=== PATIENT | male | born 1955 | race African-American/Black ===

== ENCOUNTER 2023-02-19 12:02 | Outpatient (CLI) | payer OTHER, SELFPAY ==
--- NOTE | ~2023-02-19 | PE_ITS ---
EXAMINATION: PET skull to mid thigh DATE: 02/19/2023 14:10 INDICATION: Carcinoma. TECHNIQUE: Blood glucose level was 119 mg/dL. 11.069 mCi of 18-fluorodeoxyglucose (18-FDG) was admini stered i.v. Low dose computed tomography (CT) images were acquired from the base of the brain to the proximal thighs for attenuation correction and anatomic localization. Automated exposure control was employed. Dose-length product (DLP) was 485 mGy-cm. Positron emission tomography (PET) images were ac quired in the same distribution. COMPARISON: None FINDINGS: Head/neck: There are no pathologically enlarged lymph nodes. Chest: There is a small right pleural effusion. There is mild atelectasis bilaterally. The heart size is normal. No pericardial effusion. There is left paraesophageal lymphadenopathy with increased acti vity. Abdomen/pelvis/proximal thighs: There are multiple masses in right hepatic lobe measuring up to 8.0 c m with maximum SUV of 9.6. The spleen, gallbladder, pancreas, and right adrenal gland are normal. The re is a 3.9 cm mass in left adrenal gland with maximum SUV of 7.7. The kidneys are normal. There is a n end colostomy on the left. The prostate is moderately enlarged. There is periportal lymphadenopathy with increased activity. In the right buttock, there is a 7 mm subcutaneous mass with increased acti vity. There is no osseous malignancy. IMPRESSION: 1. Liver masses, left adrenal mass, and abdominal and chest lymphadenopathy, consistent with metastat ic disease. 2. 7 mm subcutaneous mass with increased activity in right buttock, which may be metastatic disease o r inflammation/infection. 3. Small right pleural effusion. Reviewed, dictated and finalized at location A. CTOR OF SECURITY IMPRESSION: 1. Liver masses, left adrenal mass, and abdominal and chest lymphadenopathy, co nsistent with metastatic disease. 2. 7 mm subcutaneous mass with increased activity in right buttock, which may b e metastatic disease or inflammation/infection. 3. Small right pleural effusion.
[2023-02-19 12:26] LABS: Glucose Point of Care 119 mg/dl (65-105)
== END 2023-02-19 12:03 | disposition home or self-care (01) ==
PROVIDERS: PCP Internal Medicine; Visit Provider Internal Medicine Hematology & Oncology
DX: C80.1 Malignant (primary) neoplasm, unspecified (principal); R16.0 Hepatomegaly, not elsewhere classified; R59.0 Localized enlarged lymph nodes; R22.2 Localized swelling, mass and lump, trunk; J90 Pleural effusion, not elsewhere classified
CPT/HCPCS: 78815; A9552

== ENCOUNTER 2023-03-26 05:47 | Outpatient (CLI) | payer OTHER, SELFPAY ==
--- NOTE | 2023-03-20 12:44 | PC.NURSE ---
Pre Radiology instructions Report to the outpatient [facility] on date _[id number]_ at time _0830_ for procedure Time: _1030_ YOU MAY BE MONITORED AT HOSPITAL FOR UP TO 4 HOURS AFTER YOUR PROCEDURE. A visitor will be allowed to accompany the patient into the hospital. You and your visitor will be asked to self-screen and do not enter if you have any COVID symptoms. A mask is OPTIONAL within the hospital. Patients are to have no food or drink 6 hours prior to procedure time Driving will be restricted after the procedure, you must have a person to drive you home. Labs will be drawn in preop area and once reviewed, you will be taken to radiology area for procedure. When the procedure is completed, you will be taken to outpatient where you will be monitored for several hours. You may have one visitor in this area. Other than holding anti-coagulants, patient may take other medication(s) as scheduled. Prior to your appointment date patients are instructed to hold anti-coagulants after discussing with ordering provider to stop. If unable to discontinue anti-coagulants please notify radiologist. ? No aspirin or warfarin (Coumadin) for 7 days prior to the procedure. ? No clopidogrel (Plavix), ticagrelor (Brilinta), prasugrel (Effient) or dabigatran (Pradaxa) for 5 days prior to the procedure. ? No rivaroxaban (Xarelto), apixaban (Eliquis), dipyridamole (Aggrenox or Persantine) or cilostazol (Pletal) for 2 days prior to the procedure. Medications to discontinue per physician: Date to take last dose: Please leave all valuables, including medications, at home the day of procedure. The hospital will not accept responsibility for valuables. Wear comfortable, loose fitting clothing.? Follow any additional instructions given to you from ordering provider. Telephone instructions given to _Nate__and asked if any additional questions and then verbalized understanding. Patient advised to call scheduling provider office or registration scheduling [phone] if any additional questions.
[2023-03-20 12:46] VITALS: BMI 19.2
[2023-03-26] VITALS (9 sets, daily range): BP systolic 109–137; BP diastolic 67–81; PULSE 74–93; RESP 14–16; TEMP 36.9; O2SAT 100
--- NOTE | ~2023-03-26 | US_ITS ---
EXAMINATION: US biopsy liver DATE: 03/26/2023 11:29 INDICATION: Liver mass and carcinoma of unknown primary. TECHNIQUE: The procedure including the risks and benefits was discussed with the patient. Risks discu ssed included bleeding and infection. The patient understood the risks and agreed to proceed. The sk in overlying the liver was prepped and draped in usual sterile fashion. Anesthetic was administered with 1% lidocaine subcutaneously. An 18 gauge core biopsy needle was advanced under continuous ultra sound observation to the lesion of interest. 4 core biopsy specimens were obtained. The needle was removed and the entry site was cleaned and dressed. Post procedure ultrasound demonstrated no hemorr nola. FINDINGS: Ultrasound images demonstrate an approximately 10.5 x 8.4 x 8.2 cm mass with lobular margin s and heterogeneous decreased echogenicity in the posterior right hepatic lobe. Subsequent images dem onstrate the biopsy needle advanced into the mass. Note there is also approximately 5.0 x 6.0 x 5.6 c m heterogeneous lobular mass at the marlen hepatis likely representing a conglomeration of metastatic lymph nodes. IMPRESSION: 1. Successful Ultrasound-guided biopsy of a 10.5 cm mass in the right hepatic lobe. Reviewed, dictated and finalized at location A. CTOR OF GOLF IMPRESSION: 1. Successful Ultrasound-guided biopsy of a 10.5 cm mass in the right hepatic l obe.
[2023-03-26 09:25] LABS: Mean Platelet Volume 10.1 fl (7.4-10.4); Platelet Count Result 354 k/mm3 (150-375)
[2023-03-26 09:35] LABS: INR 1.2; Prothrombin Time 15.8 Seconds (11.1-14.7)
== END 2023-03-26 15:25 | disposition home or self-care (01) ==
PROVIDERS: PCP Internal Medicine; Referring Provider Internal Medicine Hematology & Oncology; Visit Provider Radiology Diagnostic Radiology
PROC: BF45ZZZ Ultrasonography of Liver (ICD-10-PCS; CPT 47000; principal; 2023-03-26 10:30)
DX: Z01.818 Encounter for other preprocedural examination (principal); C80.1 Malignant (primary) neoplasm, unspecified
CPT/HCPCS: 36415; 47000; 76942; 85049; 85610; 88307; 88342

== ENCOUNTER 2023-04-29 10:27 | Outpatient (CLI) | payer OTHER, SELFPAY ==
[2023-04-29 10:52] LABS: Basophils Percent Auto 0.2 % (0.2-1.2); Eosinophils Percent Auto 0.3 % (0-4.4); Hemoglobin 10.9 g/dL (14.0-18.0); Immature Granulocyte Absolute 0.07 K/mm3 (0.00-0.031); Immature Granulocyte Percent A 0.5 % (0-0.5); Lymphocytes Absolute Auto 1.24 K/mm3 (0.9-3.2); Mean Corpuscular Hemoglobin 28.2 pg (26-34); Mean Corpuscular Volume 85.3 fl (80-100); Mean Platelet Volume 9.4 fl (7.4-10.4); Monocytes Absolute Auto 1.3 K/mm3 (0.1-0.6); Monocytes Percent Auto 8.5 % (2.6-8.5); Neutrophils Absolute Auto 12.8 K/mm3 (1.3-6.7); Neutrophils Percent Auto 82.5 % (45.5-73.1); Platelet Count Result 389 k/mm3 (150-375); Red Blood Count 3.87 M/mm3 (4.6-6.20); Red Cell Distribution Width 15.6 % (11.5-14.5); White Blood Count 15.5 K/mm3 (4.5-10.0)
[2023-04-29 11:13] LABS: INR 1.3
[2023-04-29 11:14] LABS: Partial Thromboplastin Time 38.3 SECONDS (22.3-36.8)
== END 2023-04-29 10:28 | disposition home or self-care (01) ==
LOC: ANHSURGERY 10:30
PROVIDERS: PCP Internal Medicine; Visit Provider Surgery
DX: C22.1 Intrahepatic bile duct carcinoma (principal); Z01.818 Encounter for other preprocedural examination
CPT/HCPCS: 36415; 85025; 85610; 85730; 86480; 87340

== ENCOUNTER 2023-04-29 12:01 | Outpatient (CLI) | payer OTHER, SELFPAY ==
[2023-04-29 15:17] LABS: Hepatitis B Surface Antigen Negative (Negative)
[2023-05-01 12:13] LABS: NIL 0.03 IU/mL; Quantiferon TB Plus, 1T NEGATIVE (NEGATIVE); TB1-NIL <0.00 IU/mL; TB2-NIL <0.00 IU/mL
== END 2023-04-29 12:02 | disposition home or self-care (01) ==
PROVIDERS: PCP Internal Medicine; Visit Provider Internal Medicine Hematology & Oncology
DX: Z11.59 Encounter for screening for other viral diseases (principal)
CPT/HCPCS: 36415; 86480; 87340

== ENCOUNTER 2023-05-01 00:33 | Day surgery (SDC) | payer OTHER, SELFPAY ==
--- NOTE | 2023-04-25 11:59 | PC.NURSE ---
Report to the Outpatient Waiting Room, entrance under the green pavilion located off [facility], at time __0745 on date __05/01/23 . Planned Procedure Time: __944 . Time changes happen often and if your time is changed the preop area will call you the afternoon before. - You and your visitor will be asked to self-screen and do not enter if you have any COVID symptoms. - A mask is optional within the hospital at this time. Patients may have clear liquids (water, carbonated beverages, clear teas, apple juice) until 3 hours prior to surgery ( 6:45 AM)with a maximum of 20 ounces. - No food from midnight until time of surgery - Infants may have breast milk until 4 hours before surgery, infant formula 6 hours prior to surgery. - Children will be allowed to drink immediately following surgery. If applicable, please bring a bottle or sippy cup to assist with drinking. Juice, water, soda, and popsicles are readily available. For infants on formula, please bring formula the day of surgery. Pacifiers are allowed. Take the following medications with a SIP of water the morning of surgery: ___INHALER IF NEEDED, MAY TAKE PAIN PILL IF NEEDED DO NOT STOP ANY OF YOUR OTHER PRESCRIPTION MEDICATIONS PRIOR TO SURGERY ?EXCEPT THE FOLLOWING Medications to discontinue per physician ALL VITAMINS 3 DAYS PRE OP.LAST DOSE 04/27/23 Please no make-up, nail kiswahili, hairspray, perfume, deodorant, or body powder the day of surgery. No jewelry (including any body piercings) or valuables the day of surgery, leave them at home. Please take a shower or bath the night before, or the morning of, surgery with an antibacterial soap. Wear comfortable, loose fitting clothing. Children are encouraged to wear pajamas. - Jewelry must be removed prior to entering the operating room. Rings and piercings that are not removed may be cut off. - The hospital will not accept responsibility for valuables. - Please leave all valuables, including medications, at home the day of surgery. If you are going home after surgery, a licensed otr tanker truck driver must drive you home. - NO public transportation without another adult if you receive anesthesia. - We recommend that an adult stay with you for 24 hours following discharge. - We also recommend that you do not drive, make important decision, drink alcoholic beverages, or take any drugs that were not prescribed by your health care provider for at least 24 hours after your discharge time. For Pediatric surgeries, we recommend two adults accompany the child home. Follow any additional instructions given to you from your surgeon. If you or anyone in your household have experienced Covid symptoms in the past week, please notify your surgeon or the nurse liaison at the phone number below for possible testing. Telephone instructions given to __PATIENT AND SISTER SANDRA and asked if any additional questions and then verbalized understanding. Patient advised to call surgeon office or pre surgery nurse liaison [phone] if any additional questions.
[2023-04-25 12:11] VITALS: BMI 19.2
--- NOTE | ~2023-05-01 | XR_ITS ---
EXAMINATION: XR chest port-a-cath/central INDICATION: Port-A-Cath insertion TECHNIQUE: Portable AP chest at 1027 hours COMPARISON: None available FINDINGS: A right subclavian Port-A-Cath ends with its tip in the midsuperior vena cava. There is a s mall to moderate size right pleural effusion. There is no pneumothorax. There are airspace opacities of the lung bases, likely atelectasis. The heart size is normal. IMPRESSION: 1. Right subclavian Port-A-Cath insertion. No pneumothorax. 2. Small to moderate size right pleural effusion. Reviewed, dictated and finalized at location B. ASSOCIATE
--- NOTE | ~2023-05-01 | XR_ITS ---
EXAMINATION: XR fl guide central line place INDICATION: Port-A-Cath insertion TECHNIQUE: A single intraoperative fluoroscopic image is submitted for review. Total fluoroscopic jose e was 27.7 seconds. COMPARISON: None available FINDINGS: Fluoroscopic image demonstrates a right subclavian Port-A-Cath and guidewire. The tip of th e catheter is below the inferior margin of fluoroscopic image. Please refer to procedure note for ful l details. IMPRESSION: 1. Please refer to procedure note for full details. Reviewed, dictated and finalized at location B. DRESSER
--- NOTE | 2023-05-01 08:32 | PM.IMHP ---
H&P: HPI History of Present Illness Date/Time: 05/01/23 08:32 Chief Complaint: Liver CA Narrative: Pt presents for placement of portacatheter for chemo tx. He was recently dx with cholangiocarcinoma. No prior hx of CA. No prior hx of central line placement. Review of Systems Review of Systems: The remainder of the review of systems to include constitutional, HEENT, cardiovascular, respiratory, GI, , integumentary, musculoskeletal, endocrine, immunologic, hematologic, psychiatric, and neurologic are all negative except for which is mentioned above in the HPI. [facility] Social History Social History Smoking packs per day: 1 Smoking cigarettes per day: 20.0 Years smoked: 50 Smoking pack-years: 50.00 Smoking status: Current every day smoker Tobacco type: cigarettes Living arrangements: alone Spiritual care concerns: No Meds Home Medications and Allergies Home Medications Medication Instructions Recorded Confirmed Type multivitamin 1 tablet PO DAILY 03/20/23 04/30/23 History acetaminophen 300 mg-codeine 15 mg 1 tablet PO PRN PRN Pain 04/25/23 04/30/23 History tablet acetaminophen 325 mg tablet 650 mg PO PRN PRN Pain 04/25/23 04/30/23 History albuterol sulfate 90 mcg/actuation 2 puff inhalation PRN PRN 04/25/23 04/30/23 History aerosol inhaler Shortness Of Breath Allergies Allergy/AdvReac Type Severity Reaction Status Date / Time No Known Allergies Allergy Verified 05/01/23 08:26 Exam Const: General: comfortable and no acute distress HENMT: Ears: TM's normal bilaterally Face/Nose/Sinus: Normal nares present Mouth: Yes moist mucous membranes Eyes: General: appearance normal, both eyes and all related structures Sclera: sclerae normal Pupils: Equal, round and reactive pupils present EOM: EOMs intact bilaterally Neck: Neck: supple and no JVD Resp: Effort & Inspection: normal respiratory effort Auscultation: clear to auscultation bilaterally Cardio: Rate: regular rate Rhythm: regular rhythm GI: GI Palp: Yes Soft to palpation, No Firmness to palpation present (GI), No Tenderness to palpation present (GI), No Guarding due to palpation present (GI) and No Hernia present Skin: General skin exam: normal color and no rashes or lesions noted Neuro: General: gait normal Speech: normal speech Motor exam (neuro): 5/5 motor strength present throughout Sensory Exam: normal sensation Extrem: General: normal to inspection Psych: Mental Status: mental status grossly normal Affect: normal affect Assessment and Plan Assessment and plan (1) Cholangiocarcinoma: Code(s): C22.1 - Intrahepatic bile duct carcinoma Status: Acute Assessment and Plan: Pt with recent dx of cholangiocarcinoma. Presents today for placement of portacatheter for chemo tx. Risks, benefits, indications, and expected outcomes were discussed in detail with the patient and/or family. They understand and I have answered all other questions. They wished to proceed with surgery as outlined above. Specific risk of iatrogenic pneumothorax and need for chest tube placement and bleeding needing blood transfusion discussed. He understands and wishes to proceed with surgery.
--- NOTE | 2023-05-01 08:37 | WPDHPUPDATE1 ---
History and Physical Update Update Date/Time: 05/01/23 08:37 History and Physical has been reviewed, including an updated exam of the patient. There are NO changes in the patient's condition. Risks, benefits, and alternatives have been discussed and questions answered. Patient agrees to proceed with procedure.
[2023-05-01] MEDS: LACTATED RINGERS 1,000 ML 30 ML IV CONT (08:58)
[2023-05-01 09:00] VITALS: BP 113/68; PULSE 84; RESP 16; TEMP 37.2; O2SAT 100
[2023-05-01 09:16] LABS: INR 1.2; Prothrombin Time 16.1 Seconds (11.1-14.7)
[2023-05-01 09:17] LABS: Partial Thromboplastin Time 32.5 SECONDS (22.3-36.8)
--- NOTE | 2023-05-01 09:33 | WPDANESEPPF ---
Anes - Initial Pre Proc Eval Procedure: Operation Date: 05/01/23 09:45 Proposed Procedures p Insertion Jonathon Cath - Efrain Gamboa MD Date/Time: 05/01/23 09:33 Surgeon: Efrain Gamboa MD Pre Op Diagnosis: cholangiocarcinoma Patient Data Age: 67 Gender: M Height: 1.75 m Weight: 56 kg Last Vital Signs Temp 99 F 05/01/23 09:00 Pulse 84 05/01/23 09:00 Resp 16 05/01/23 09:00 BP 113/68 05/01/23 09:00 Pulse Ox 100 05/01/23 09:00 O2 Del Method Room Air 05/01/23 09:00 Allergies Allergy/AdvReac Type Severity Reaction Status Date / Time No Known Allergies Allergy Verified 05/01/23 08:26 Home Medications Medication Instructions Recorded Confirmed Type multivitamin 1 tablet PO DAILY 03/20/23 04/30/23 History acetaminophen 300 mg-codeine 15 mg 1 tablet PO PRN PRN Pain 04/25/23 04/30/23 History tablet acetaminophen 325 mg tablet 650 mg PO PRN PRN Pain 04/25/23 04/30/23 History albuterol sulfate 90 mcg/actuation 2 puff inhalation PRN PRN 04/25/23 04/30/23 History aerosol inhaler Shortness Of Breath Laboratory Tests 05/01/23 08:52 PT 16.1 H Seconds (11.1-14.7) INR 1.2 APTT 32.5 SECONDS (22.3-36.8) Patient hx anesthesia problems: none Family hx anesthesia problems: none Results Review: All pre-operative results and documents have been reviewed as part of the pre-operative evaluation. [facility] Social History Social History Smoking packs per day: 1 Smoking cigarettes per day: 20.0 Years smoked: 50 Smoking pack-years: 50.00 Smoking status: Current every day smoker Tobacco type: cigarettes Living arrangements: alone Spiritual care concerns: No Anes - Eval Final PreProcedure Day of Procedure 05/01/23 09:33 Patient weight: normal Heart: regular rate and rhythm Lungs: clear to auscultation Airway: Mallampati scale class II Neurological: alert and oriented Last oral intake: >/= 8 hours ASA classification: III Emergent: no Anesthetic plan: proceed Anesthesia type and monitoring: general GIVS and standard monitoring Results Review: All pre-operative results and documents have been reviewed as part of the pre-operative evaluation. Informed Consent: The patient's anesthetic plan and its attendant risks and benefits were discussed with the patient/family/POA. Questions were solicited and answers provided to the satisfaction of the patient/family/POA.
[2023-05-01] MEDS: ceFAZolin 2 GM/D5W 50 ML 2 GM/50 ML BAG IVPB (09:38)
[2023-05-01] MEDS: LIDO 1%/EPINEPHRINE 1:100,000 20 ML VIAL 40 ML INFILTRATE (09:58)
[2023-05-01] MEDS: HEPARIN SODIUM 5,000 UNITS/ML VIAL 1000 UNITS IRRIGATION (10:00)
[2023-05-01] MEDS: HEPARIN SODIUM 5,000 UNITS/ML VIAL 5000 UNITS IV PUSH (10:01)
[2023-05-01 10:19] VITALS: BP 117/61; PULSE 89; RESP 16; O2SAT 100
[2023-05-01 10:50] VITALS: BP 111/63; PULSE 76; RESP 16; O2SAT 99
--- NOTE | 2023-05-01 11:03 | W.PM.PROC2 ---
Procedure Note - Detailed Date of Procedure 05/01/23 Pre-op Diagnosis Cholangiocarcinoma Post-op Diagnosis Same Procedure Performed Placement of right subclavian vein single-lumen port a catheter with intraoperative fluoroscopy Surgeon Efrain Gamboa MD Scalehouse Attendant AMALIA Garcia Anesthesia MAC Indications Patient is a 67-year-old gentleman who was recently diagnosed with cholangiocarcinoma. He is to undergo chemotherapy treatments and presents now for placement of marlen catheter to undergo chemotherapy treatments. Findings None significant Description of Procedure After informed consent was obtained patient brought to the operating room placed supine position and then IV sedation was administered by anesthesia. The bilateral upper anterior neck and chest was then prepped and draped usual sterile fashion 1% lidocaine mixed with 0.5% Marcaine was injected just below the medial 3rd of the right clavicle. Adverse incision was then made this area the scalpel dissection carried down through the subcutaneous tissues down to the anterior pectoralis fascia. Utilized electrocautery blunt finger dissection and created a subcutaneous port pocket below the incision level the anterior pectoralis fascia. I then placed the patient head-down Trendelenburg position and used a long 18gauge spinal needle to cannulate the right subclavian vein on 1st pass down the difficulty. There was prompt return of dark venous appearing blood. A guidewire was advanced through the needle into the subclavian vein and subsequent down into the right atrium. The needle was removed intraoperative fluoroscopy was then used to dissect the guidewire which was in the proper position. I then advanced a dilator breakaway sheath over the guidewire. The guidewire and dilator were removed leaving the sheath in place. Then a 9.6 Gabonese single-lumen catheter was advanced through the sheath into the right subclavian vein subsequent down into the right atrium of the heart. The sheath was then torn away leaving the catheter in place. Intraoperative fluoroscopy was then used to visualize the tip of the catheter again and I pulled back on the catheter until the tip was in the distal superior vena cava. The catheter was then cut to the appropriate length at the skin level and attached to the Smart Port. The Smart port was then secured the subcu port pocket utilizing 3-0 Prolene sutures on 3 sides. I then irrigated out the port pocket with sterile saline solution hemostasis was good. I then close incision was interrupted 3-0 Vicryl sutures subcutaneous tissues. The skin edges were approximated lies in a running subcuticular 4 Monocryl suture incision was then cleaned and then skin glue was applied. I then percutaneously cannulated the port with a Díaz needle. It aspirated blood easily and was flushed with heparinized saline solution. It was then flushed with a final flush of 5 as units of IV heparin. The patient tolerated the procedure well no complications. All sponges, needles, and instrument counts were correct at the end procedure. EBL was _10__cc. The patient was awakened and taken to recovery in stable and satisfactory condition. Implants 9.6 Gabonese single-lumen catheter attached to Smart Port Estimated Blood Loss 10 Drains No Packing No Pathology None sent Complications No immediate complications Condition Stable Disposition PACU [facility] Billing Surgery - Charge Forward: Surgery Billing
[2023-05-01 11:20] VITALS: BP 116/68; PULSE 81; RESP 16
== END 2023-05-01 12:00 | disposition home or self-care (01) ==
PROVIDERS: PCP Internal Medicine; Visit Provider Surgery
PROC: (CPT 36561; principal; 2023-05-01 09:45)
DX: C22.1 Intrahepatic bile duct carcinoma (principal); J90 Pleural effusion, not elsewhere classified; F17.210 Nicotine dependence, cigarettes, uncomplicated; Z79.51 Long term (current) use of inhaled steroids
CPT/HCPCS: 36561; 36415; 77001; 85610; 85730; C1788; J0690; J1100; J1644; J2250; J2405; J2704; J3010; J7030; J7120

== ENCOUNTER 2023-06-26 07:41 | Outpatient (RCR) | payer OTHER, SELFPAY ==
[2023-06-26] VITALS (9 sets, daily range): BP systolic 107–132; BP diastolic 65–78; PULSE 54–78; RESP 14–16; TEMP 36.3–37.3; O2SAT 100
[2023-06-26] MEDS: ACETAMINOPHEN 325 MG TABLET 650 MG PO (08:37)
[2023-06-26] MEDS: diphenhydrAMINE HCl CAP 25 MG CAPSULE PO (08:38)
[2023-06-26] MEDS: SODIUM CHLORIDE 0.9% IV 250 ML 30 ML IV CONT (08:38)
[2023-06-26] MEDS: FUROSEMIDE INJ 40 MG/4 ML VIAL 20 MG IV PUSH (11:26)
[2023-06-26] MEDS: HEPARIN SODIUM LOCK FLUSH 500 UNITS/5 ML VIAL (14:42)
== END 2023-09-24 23:59 | disposition home or self-care (01) ==
LOC: ANHCPCTRAN 07:41
PROVIDERS: PCP Internal Medicine; Visit Provider Internal Medicine Hematology & Oncology
DX: C22.1 Intrahepatic bile duct carcinoma (principal)
CPT/HCPCS: 36415; 36430; 86850; 86900; 86901; 86923; 96374; A9270; J1642; J1940; J7050; P9016

== ENCOUNTER 2023-09-16 10:43 | Outpatient (CLI) | payer OTHER, SELFPAY ==
--- NOTE | ~2023-09-16 | CT_ITS ---
EXAMINATION: CT chest abdomen pelvis w con DATE: 09/16/2023 11:33 INDICATION: Cholangiocarcinoma TECHNIQUE: Computed tomography (CT) of the chest, abdomen, and pelvis was performed with 100 mL Omnip aque-350 intravenous contrast. Automated exposure control and iterative reconstruction technique were employed. The dose-length product was 578.16 mGy-cm. COMPARISON: PET/CT dated 02/19/2023 FINDINGS: CHEST CT: Right subclavian central venous port catheter with distal tip at the midsuperior vena cava. Couple <4 mm nodules in the right lower lobe. No pneumonia, pulmonary edema or pleural effusion. Heart size is normal with mild biatrial enlargement. No pericardial effusion. Thoracic aorta is normal in caliber with no dissection. Interval enlargement of a 5.9 x 4.6 cm heterogeneously enhancing mass situated be tween the right side of the caudal aorta and the posterior margin of the heart which previously measu red 4.3 x 3.7 cm. Mild thoracic dextrocurvature with mild spondylosis. No suspicious lytic or blastic bone lesions. ABDOMEN/PELVIS CT: There is a poorly defined heterogeneously enhancing mass in the right hepatic lobe measuring up to 8. 3 x 6.1 cm which appears to extend beyond the margins of the posterior liver capsule consistent with reported cholangiocarcinoma. There is minimal perihepatic ascites along the adjacent posterior margin of the liver with additional minimal ascites no caudally along side the normal-appearing gallbladder . There are a few smaller peripherally enhancing centrally hypodense lesions measuring up to 1.6 cm i n the right hepatic lobe consistent with metastatic disease. Increase in size of a likely metastatic heterogeneously enhancing 4.7 x 3.1 cm left adrenal mass previously measuring 3.9 x 3.2 cm. Spleen, p ancreas, right adrenal gland and bilateral kidneys are normal. There are multiple enlarged gastrohepa tic, portacaval and periportal lymph nodes which demonstrated increased FDG uptake on prior CT consis tent with metastatic disease. Bladder is normal. Marked prostatomegaly measuring 5.3 x 4.3 cm. Postop erative changes of prior bowel surgery with anastomotic suture line in the anterior left pelvis. Ther e is also a Hunt's pouch and left lower quadrant and colostomy. No bowel obstruction. No pathologi justice enlarged pelvic lymphadenopathy. No significant interval change in a 7 mm subcutaneous mass at the right buttock equivocal for additional metastatic disease.. Small sclerotic lesion at the anterio r L1 vertebral body which was without evident increased FDG uptake on prior CT most likely representi ng a bone island. No other suspicious lytic or blastic bone lesions. IMPRESSION: 1. Large heterogeneously enhancing mass in the right hepatic lobe with posterior extracapsular extens ion consistent with reported known cholangiocarcinoma. 2. At least 3 additional small peripheral enhancing hepatic masses, previous noted FDG avid portacava l, periportal and gastrohepatic lymphadenopathy, enhancing left adrenal mass and lower thoracic middl e mediastinal mass, consistent with metastatic disease. Both the left adrenal mass in the lower thora cic mass is increased in size since the prior study consistent with progression of disease. Accurate quantitative comparison of the hepatic masses and enlarged upper abdominal lymph nodes is precluded b y difficulty in establishing the margins of the lesions on the prior noncontrast imaging. Reviewed, dictated and finalized at location B. IMPRESSION: 1. Large heterogeneously enhancing mass in the right hepatic lobe with posterio r extracapsular extension consistent with reported known cholangiocarcinoma. 2. At least 3 additional small peripheral enhancing hepatic masses, previous no alma delia FDG avid portacaval, periportal and gastrohepatic lymphade
== END 2023-09-16 10:44 | disposition home or self-care (01) ==
LOC: ANHIMG 10:49
PROVIDERS: PCP Internal Medicine; Visit Provider Internal Medicine Hematology & Oncology
DX: C22.1 Intrahepatic bile duct carcinoma (principal)
CPT/HCPCS: 71260; 74177; Q9967

== ENCOUNTER 2023-11-13 09:11 | Outpatient (CLI) | payer OTHER, SELFPAY ==
--- NOTE | ~2023-11-13 | CT_ITS ---
EXAMINATION: CT chest abdomen pelvis w con DATE: 11/13/2023 09:43 INDICATION: Cholangiocarcinoma. TECHNIQUE: Computed tomography (CT) of the chest, abdomen, and pelvis was performed with 100 mL Omnip aque 350 intravenous contrast. Automated exposure control and iterative reconstruction technique were employed. The dose-length product was 343.37 mGy-cm. COMPARISON: CT 09/16/2023 FINDINGS: CHEST CT: There is mild emphysema. There is mild atelectasis bilaterally. No pleural effusion. There is a right subclavian port with tip in superior vena cava. The heart size is normal. No pericardial effusion. T here is a 4.6 x 4.1 cm paraesophageal node that previously measured 5.5 x 4.6 cm. There is mild thora cic spondylosis. ABDOMEN/PELVIS CT: There is a mass of mixed density involving right hepatic lobe measuring 8.1 x 4.6 cm that previously measured 8.5 x 6.1 cm. There are 11 mm and 14 mm masses in right hepatic lobe. The gallbladder, splee n, pancreas, and right adrenal gland are normal. There is a 3.7 cm mass of mixed density involving le ft adrenal gland that previously measured 5.1 cm. The kidneys are normal. The prostate is moderately enlarged. There is an ostomy in left abdomen. There is a 1.9 x 1.4 cm gastrohepatic node that previou sly measured 1.7 x 1.3 cm. There is stable mild periportal and aortocaval lymphadenopathy. There is n o free intraperitoneal fluid. There is mild lumbar spondylosis. IMPRESSION: 1. Liver masses, left adrenal mass, and paraesophageal and abdominal lymphadenopathy with overall imp rovement from 09/16/2023, consistent with metastatic disease. Reviewed, dictated and finalized at location A. IMPRESSION: 1. Liver masses, left adrenal mass, and paraesophageal and abdominal lymphadeno anjum with overall improvement from 09/16/2023, consistent with metastatic disea se.
== END 2023-11-13 09:12 | disposition home or self-care (01) ==
PROVIDERS: PCP Internal Medicine; Visit Provider Internal Medicine Hematology & Oncology
DX: C22.1 Intrahepatic bile duct carcinoma (principal); R59.0 Localized enlarged lymph nodes
CPT/HCPCS: 71260; 74177; Q9967

== ENCOUNTER 2023-12-27 13:37 | Outpatient (CLI) | payer OTHER, SELFPAY ==
--- NOTE | ~2023-12-27 | CT_ITS ---
EXAMINATION: CT chest abdomen pelvis w con DATE: 12/27/2023 14:08 INDICATION: Cholangiocarcinoma. TECHNIQUE: Computed tomography (CT) of the chest, abdomen, and pelvis was performed with 100 mL Omnip aque 350 intravenous contrast. Automated exposure control and iterative reconstruction technique were employed. The dose-length product was 566.95 mGy-cm. COMPARISON: CT 11/13/2023 FINDINGS: CHEST CT: There is mild emphysema. There is mild atelectasis bilaterally. No pleural effusion. The heart size i s normal. No pericardial effusion. There is mild bilateral gynecomastia. There is a right subclavian port with tip in superior vena cava. There is a 4.8 x 4.3 cm paraesophageal node. 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 There are benign bone islands in T11 and T12. ABDOMEN/PELVIS CT: There are ill-defined masses in right hepatic lobe. The gallbladder is contracted. The spleen, pancre as, and right adrenal gland are normal. There is a 3.4 cm mass in left adrenal gland. There is gastri c hepatic lymphadenopathy. There is a 12 mm peritoneal mass posterior to the liver. The kidneys are n ormal. There is an end colostomy on the left. There is no free intraperitoneal fluid. There is a morena gn bone island in right inferior pubic ramus. There is a benign bone island in L1 vertebral body. IMPRESSION: 1. Liver masses, left adrenal mass, paraesophageal and abdominal lymphadenopathy, and peritoneal mass , stable from 11/13/2023, consistent with metastatic disease. Reviewed, dictated and finalized at location A. IMPRESSION: 1. Liver masses, left adrenal mass, paraesophageal and abdominal lymphadenopath y, and peritoneal mass, stable from 11/13/2023, consistent with metastatic disea se.
== END 2023-12-27 13:38 | disposition home or self-care (01) ==
PROVIDERS: PCP Internal Medicine; Visit Provider Internal Medicine Hematology & Oncology
DX: C22.1 Intrahepatic bile duct carcinoma (principal)
CPT/HCPCS: 71260; 74177; Q9967

== ENCOUNTER 2024-06-09 08:19 | Outpatient (RCR) | payer OTHER, SELFPAY ==
--- NOTE | 2023-04-18 16:08 | PHAR ---
Gemcitabine dose rounded down to 1600mg from 1650 mg (3%) to reduce waste due to vial size.
[2023-05-13 08:52] LABS: Basophils Percent Auto 0.2 % (0.2-1.2); Eosinophils Percent Auto 0.1 % (0-4.4); Hemoglobin 9.4 g/dL (14.0-18.0); Immature Granulocyte Percent A 0.6 % (0-0.5); Lymphocytes Absolute Auto 1.11 K/mm3 (0.9-3.2); Lymphocytes Percent Auto 6.2 % (18.3-44.2); Mean Corpuscular HGB Conc 32.4 g/dl (32-36); Mean Corpuscular Hemoglobin 28.6 pg (26-34); Mean Corpuscular Volume 88.1 fl (80-100); Mean Platelet Volume 9.9 fl (7.4-10.4); Monocytes Absolute Auto 1.4 K/mm3 (0.1-0.6); Neutrophils Absolute Auto 15.3 K/mm3 (1.3-6.7); Neutrophils Percent Auto 84.9 % (45.5-73.1); Platelet Count Result 304 k/mm3 (150-375); Red Blood Count 3.29 M/mm3 (4.6-6.20); Red Cell Distribution Width 16.3 % (11.5-14.5); White Blood Count 17.9 K/mm3 (4.5-10.0)
[2023-05-13 08:57] LABS: Blood Urea Nitrogen 6 mg/dL (8-26); Carbon Dioxide 31 mmol/L (22-30); Chloride 99 mmol/L (98-109); Estimated Glomerular Filt Rate > 60; Glucose 112 mg/dL (70-105); Ionized Calcium (POC) 1.19 mmol/L (1.11-1.31); Potassium 3.7 mmol/L (3.5-4.9); Sodium 139 mmol/L (138-146)
[2023-05-13 09:57] VITALS: BP 119/67; PULSE 80; TEMP 36.6; O2SAT 99
[2023-05-13] MEDS: PEMBROLIZUMAB 200 MG in SODIUM CHLORIDE 0.9% IV 100 ML 216 MG IVPB (10:19)
[2023-05-13 11:00] LABS: Alanine Aminotransferase 9 U/L (6-50); Albumin Level 3.3 g/dL (3.5-5.1); Alkaline Phosphatase 134 U/L (38-126); Anion Gap 6 mmol/L (8-16); Aspartate Amino Transferase 18 U/L (17-59); Bilirubin,Total 0.7 mg/dL (0.2-1.3); Blood Urea Nitrogen 8 mg/dL (9-20); Calcium 9.1 mg/dL (8.4-10.2); Carbon Dioxide 29 mmol/L (22-30); Chloride 102 mmol/L (98-107); Estimated Glomerular Filt Rate > 60; Glucose 111 mg/dL (65-110); Magnesium 1.9 mg/dL (1.6-2.3); Potassium 3.6 mmol/L (3.4-5.0); Sodium 137 mmol/L (137-145)
[2023-05-13] MEDS: [UNRECOGNIZED DRUG - OTHER] IVPB (11:03)
[2023-05-13] MEDS: POTASSIUM CHLORIDE IVPB (11:03)
[2023-05-13] MEDS: MAGNESIUM SULFATE IVPB (11:03)
[2023-05-13 11:59] LABS: Folic Acid 5.7 ng/mL (2.76->20)
[2023-05-13] MEDS: OLANZapine DISPERTAB 5 MG PO (12:29)
[2023-05-13] MEDS: PALONOSETRON HCL 0.25 MG/5 ML VIAL IV PUSH (12:29)
[2023-05-13] MEDS: FOSAPREPITANT DIMEGLUMINE 150 MG in SODIUM CHLORIDE 0.9% IV 150 ML 300 MG IVPB (12:34)
[2023-05-13] MEDS: dexAMETHasone SOD 4 MG/ML INJ 12 MG in SODIUM CHLORIDE 0.9% IV 100 ML 206 MG IVPB (12:35)
[2023-05-13] MEDS: GEMCITABINE HCL IVPB (13:20)
[2023-05-13] MEDS: SODIUM CHLORIDE 0.9% IVPB ×2 (13:20→15:12)
--- NOTE | 2023-05-13 14:50 | PC.NURSE ---
[employer] ran for 30 minutes.
[2023-05-13] MEDS: CISPLATIN IVPB (15:12)
[2023-05-13] MEDS: SODIUM CHLORIDE 0.9% IV 500 ML IVPB (15:16)
[2023-05-13 16:22] VITALS: BP 138/79
[2023-05-13] MEDS: HEPARIN SODIUM LOCK FLUSH 500 UNITS/5 ML SYRINGE IV PUSH (16:25)
[2023-05-13 16:45] LABS: Iron 23 ug/dL (49-181)
[2023-05-13 16:58] LABS: Percent Iron Saturation 12 % (20-50); TOTAL IRON BINDING CAPACITY 197 ug/dL (265-497)
[2023-05-23 08:45] LABS: Basophils Percent Auto 0.2 % (0.2-1.2); Eosinophils Percent Auto 0.2 % (0-4.4); Hemoglobin 8.9 g/dL (14.0-18.0); Immature Granulocyte Absolute 0.07 K/mm3 (0.00-0.031); Immature Granulocyte Percent A 0.6 % (0-0.5); Lymphocytes Absolute Auto 1.19 K/mm3 (0.9-3.2); Lymphocytes Percent Auto 9.5 % (18.3-44.2); Mean Corpuscular Hemoglobin 28.8 pg (26-34); Mean Corpuscular Volume 87.4 fl (80-100); Mean Platelet Volume 10.5 fl (7.4-10.4); Monocytes Percent Auto 7.7 % (2.6-8.5); Neutrophils Absolute Auto 10.3 K/mm3 (1.3-6.7); Neutrophils Percent Auto 81.8 % (45.5-73.1); Platelet Count Result 192 k/mm3 (150-375); Red Blood Count 3.09 M/mm3 (4.6-6.20); Red Cell Distribution Width 16.8 % (11.5-14.5); White Blood Count 12.5 K/mm3 (4.5-10.0)
[2023-05-23 08:49] LABS: Blood Urea Nitrogen 10 mg/dL (8-26); Carbon Dioxide 23 mmol/L (22-30); Chloride 105 mmol/L (98-109); Estimated Glomerular Filt Rate > 60; Glucose 109 mg/dL (70-105); Ionized Calcium (POC) 1.21 mmol/L (1.11-1.31); Potassium 3.1 mmol/L (3.5-4.9); Sodium 142 mmol/L (138-146)
[2023-05-23 09:23] VITALS: BP 110/54; PULSE 77; TEMP 36.6; O2SAT 100
[2023-05-23] MEDS: POTASSIUM CHLORIDE IVPB (09:47)
[2023-05-23] MEDS: MAGNESIUM SULFATE IVPB (09:47)
[2023-05-23] MEDS: [UNRECOGNIZED DRUG - OTHER] IVPB (09:47)
[2023-05-23] MEDS: PALONOSETRON HCL 0.25 MG/5 ML VIAL IV PUSH (11:58)
[2023-05-23 12:00] LABS: Alanine Aminotransferase 14 U/L (6-50); Albumin Level 3.2 g/dL (3.5-5.1); Alkaline Phosphatase 127 U/L (38-126); Anion Gap 6 mmol/L (8-16); Aspartate Amino Transferase 21 U/L (17-59); Bilirubin,Total 0.4 mg/dL (0.2-1.3); Blood Urea Nitrogen 12 mg/dL (9-20); Carbon Dioxide 24 mmol/L (22-30); Chloride 109 mmol/L (98-107); Estimated Glomerular Filt Rate > 60; Glucose 108 mg/dL (65-110); Magnesium 1.9 mg/dL (1.6-2.3); Potassium 3.1 mmol/L (3.4-5.0); Sodium 139 mmol/L (137-145)
[2023-05-23] MEDS: FOSAPREPITANT DIMEGLUMINE 150 MG in SODIUM CHLORIDE 0.9% IV 150 ML 300 MG IVPB (12:00)
[2023-05-23] MEDS: dexAMETHasone SOD 4 MG/ML INJ 12 MG in SODIUM CHLORIDE 0.9% IV 100 ML 206 MG IVPB (12:00)
[2023-05-23] MEDS: OLANZapine DISPERTAB 5 MG PO (12:00)
[2023-05-23] MEDS: GEMCITABINE HCL IVPB (12:47)
[2023-05-23] MEDS: SODIUM CHLORIDE 0.9% IVPB ×2 (12:47→13:41)
[2023-05-23] MEDS: CISPLATIN IVPB (13:41)
[2023-05-23] MEDS: SODIUM CHLORIDE 0.9% IV 500 ML IVPB (13:41)
[2023-05-23] MEDS: HEPARIN SODIUM LOCK FLUSH 500 UNITS/5 ML SYRINGE IV PUSH (14:56)
[2023-05-23 15:33] VITALS: BP 128/66
[2023-06-11 08:32] LABS: Hematocrit 26.4 % (42.0-52.0); Hemoglobin 8.9 g/dL (14.0-18.0); Mean Corpuscular HGB Conc 33.7 g/dl (32-36); Mean Platelet Volume 9.8 fl (7.4-10.4); Platelet Count Result 497 k/mm3 (150-375); Red Blood Count 3.07 M/mm3 (4.6-6.20); Red Cell Distribution Width 16.8 % (11.5-14.5); White Blood Count 22.1 K/mm3 (4.5-10.0)
[2023-06-11 08:38] LABS: Blood Urea Nitrogen 9 mg/dL (8-26); Carbon Dioxide 28 mmol/L (22-30); Chloride 98 mmol/L (98-109); Estimated Glomerular Filt Rate > 60; Glucose 113 mg/dL (70-105); Sodium 137 mmol/L (138-146)
[2023-06-11 08:39] LABS: Band Neutrophils Percent 4 % (0-6); Monocytes Absolute Manual 0.66 K/mm3 (0.1-0.90); Monocytes Percent Manual 3 % (3-9); Neutrophils Absolute Manual 20.33 K/mm3 (1.3-6.7); Neutrophils Percent Manual 88 % (46-73); Nucleated Red Blood Cells 1 %; Ovalocytes 1+; Platelet Estimate Increased (Adequate); Schistocytes None Seen; Target Cells 1+; Total Cells Counted 100
[2023-06-11 08:40] LABS: Poikilocytosis 2+
[2023-06-11 08:41] LABS: Potassium 2.6 mmol/L (3.5-4.9)
[2023-06-11 09:09] VITALS: BP 115/52; PULSE 94; TEMP 37.1; O2SAT 100
[2023-06-11] MEDS: KCL 20MEQ/0.9% SOD CHL 1,000 ML 500 ML IVPB (09:22)
[2023-06-11 09:38] LABS: Alanine Aminotransferase 11 U/L (6-50); Alkaline Phosphatase 121 U/L (38-126); Anion Gap 5 mmol/L (8-16); Aspartate Amino Transferase 26 U/L (17-59); Bilirubin,Total 0.6 mg/dL (0.2-1.3); Blood Urea Nitrogen 12 mg/dL (9-20); Calcium 8.6 mg/dL (8.4-10.2); Carbon Dioxide 28 mmol/L (22-30); Chloride 101 mmol/L (98-107); Estimated Glomerular Filt Rate > 60; Glucose 113 mg/dL (65-110); Magnesium 1.4 mg/dL (1.6-2.3); Potassium 2.7 mmol/L (3.4-5.0); Sodium 134 mmol/L (137-145)
[2023-06-11 11:39] VITALS: BP 104/56
[2023-06-11] MEDS: HEPARIN SODIUM LOCK FLUSH 500 UNITS/5 ML SYRINGE (11:42)
[2023-06-18 08:26] LABS: Hematocrit 28.8 % (42.0-52.0); Hemoglobin 9.5 g/dL (14.0-18.0); Mean Corpuscular Hemoglobin 28.5 pg (26-34); Mean Corpuscular Volume 86.5 fl (80-100); Platelet Count Result 410 k/mm3 (150-375); Red Blood Count 3.33 M/mm3 (4.6-6.20); Red Cell Distribution Width 16.9 % (11.5-14.5); White Blood Count 32.7 K/mm3 (4.5-10.0)
[2023-06-18 08:30] LABS: Blood Urea Nitrogen 13 mg/dL (8-26); Carbon Dioxide 23 mmol/L (22-30); Chloride 100 mmol/L (98-109); Estimated Glomerular Filt Rate > 60; Glucose 155 mg/dL (70-105); Ionized Calcium (POC) 1.14 mmol/L (1.11-1.31); Potassium 3.4 mmol/L (3.5-4.9); Sodium 137 mmol/L (138-146)
[2023-06-18 08:31] LABS: Lymphocytes Absolute Manual 0.65 K/mm3 (1.1-4.5); Monocytes Absolute Manual 0.65 K/mm3 (0.1-0.90); Monocytes Percent Manual 2 % (3-9); Neutrophils Percent Manual 96 % (46-73); Platelet Estimate Increased (Adequate); Total Cells Counted 100
[2023-06-18 08:32] LABS: Hypochromasia 1+; Schistocytes None Seen
[2023-06-18 09:01] VITALS: BP 103/57; PULSE 106; TEMP 36.7; O2SAT 100
[2023-06-18] MEDS: PEMBROLIZUMAB 200 MG in SODIUM CHLORIDE 0.9% IV 100 ML 216 MG IVPB (09:20)
[2023-06-18] MEDS: POTASSIUM CHLORIDE IVPB (09:57)
[2023-06-18] MEDS: [UNRECOGNIZED DRUG - OTHER] IVPB (09:57)
[2023-06-18] MEDS: MAGNESIUM SULFATE IVPB (09:57)
[2023-06-18 09:59] LABS: Alanine Aminotransferase 11 U/L (6-50); Albumin Level 2.8 g/dL (3.5-5.1); Alkaline Phosphatase 121 U/L (38-126); Anion Gap 8 mmol/L (4-12); Aspartate Amino Transferase 19 U/L (17-59); Bilirubin,Total 0.4 mg/dL (0.2-1.3); Blood Urea Nitrogen 14 mg/dL (9-20); Calcium 8.5 mg/dL (8.4-10.2); Carbon Dioxide 23 mmol/L (22-30); Chloride 103 mmol/L (98-107); Estimated Glomerular Filt Rate > 60; Glucose 156 mg/dL (65-110); Magnesium 1.4 mg/dL (1.6-2.3); Potassium 3.3 mmol/L (3.4-5.0); Sodium 134 mmol/L (137-145)
[2023-06-18] MEDS: OLANZapine DISPERTAB 5 MG PO (11:11)
[2023-06-18] MEDS: PALONOSETRON HCL 0.25 MG/5 ML VIAL IV PUSH (11:11)
[2023-06-18] MEDS: FOSAPREPITANT DIMEGLUMINE 150 MG in SODIUM CHLORIDE 0.9% IV 150 ML 300 MG IVPB (11:14)
[2023-06-18] MEDS: dexAMETHasone SOD 4 MG/ML INJ 12 MG in SODIUM CHLORIDE 0.9% IV 100 ML 206 MG IVPB (11:15)
[2023-06-18] MEDS: GEMCITABINE HCL IVPB (11:54)
[2023-06-18] MEDS: SODIUM CHLORIDE 0.9% IVPB ×2 (11:54→12:42)
[2023-06-18] MEDS: CISPLATIN IVPB (12:42)
[2023-06-18] MEDS: SODIUM CHLORIDE 0.9% IV 500 ML IVPB (12:48)
[2023-06-18 13:54] VITALS: BP 97/52
[2023-06-18] MEDS: HEPARIN SODIUM LOCK FLUSH 500 UNITS/5 ML SYRINGE IV PUSH (14:00)
[2023-06-25 09:08] LABS: Basophils Percent Auto 0.2 % (0.2-1.2); Eosinophils Absolute Auto 0.1 K/mm3 (0-0.3); Eosinophils Percent Auto 0.3 % (0-4.4); Hemoglobin 8.9 g/dL (14.0-18.0); Immature Granulocyte Absolute 0.17 K/mm3 (0.00-0.031); Lymphocytes Absolute Auto 1.57 K/mm3 (0.9-3.2); Lymphocytes Percent Auto 9.6 % (18.3-44.2); Mean Corpuscular Hemoglobin 28.8 pg (26-34); Mean Corpuscular Volume 87.4 fl (80-100); Mean Platelet Volume 9.3 fl (7.4-10.4); Monocytes Absolute Auto 0.9 K/mm3 (0.1-0.6); Monocytes Percent Auto 5.6 % (2.6-8.5); Neutrophils Absolute Auto 13.6 K/mm3 (1.3-6.7); Neutrophils Percent Auto 83.3 % (45.5-73.1); Platelet Count Result 161 k/mm3 (150-375); Red Blood Count 3.09 M/mm3 (4.6-6.20); Red Cell Distribution Width 16.3 % (11.5-14.5); White Blood Count 16.4 K/mm3 (4.5-10.0)
[2023-06-25 09:16] LABS: Blood Urea Nitrogen 23 mg/dL (8-26); Carbon Dioxide 20 mmol/L (22-30); Chloride 103 mmol/L (98-109); Estimated Glomerular Filt Rate > 60; Glucose 118 mg/dL (70-105); Ionized Calcium (POC) 1.23 mmol/L (1.11-1.31); Potassium 4.2 mmol/L (3.5-4.9); Sodium 137 mmol/L (138-146)
[2023-06-25 09:52] VITALS: BP 110/74; PULSE 87; TEMP 36.4; O2SAT 100
[2023-06-25] MEDS: POTASSIUM CHLORIDE IVPB (10:09)
[2023-06-25] MEDS: MAGNESIUM SULFATE IVPB (10:09)
[2023-06-25] MEDS: [UNRECOGNIZED DRUG - OTHER] IVPB (10:09)
[2023-06-25] MEDS: FOSAPREPITANT DIMEGLUMINE 150 MG in SODIUM CHLORIDE 0.9% IV 150 ML 300 MG IVPB (11:28)
[2023-06-25] MEDS: PALONOSETRON HCL 0.25 MG/5 ML VIAL IV PUSH (11:28)
[2023-06-25] MEDS: OLANZapine DISPERTAB 5 MG PO (11:28)
[2023-06-25] MEDS: dexAMETHasone SOD 4 MG/ML INJ 12 MG in SODIUM CHLORIDE 0.9% IV 100 ML 206 MG IVPB (11:29)
[2023-06-25] MEDS: GEMCITABINE HCL IVPB (12:16)
[2023-06-25] MEDS: SODIUM CHLORIDE 0.9% IVPB ×2 (12:16→12:58)
[2023-06-25 12:42] LABS: Alanine Aminotransferase 20 U/L (6-50); Albumin Level 3.3 g/dL (3.5-5.1); Alkaline Phosphatase 163 U/L (38-126); Anion Gap 7 mmol/L (4-12); Aspartate Amino Transferase 26 U/L (17-59); Bilirubin,Total 0.4 mg/dL (0.2-1.3); Blood Urea Nitrogen 24 mg/dL (9-20); Carbon Dioxide 20 mmol/L (22-30); Chloride 106 mmol/L (98-107); Estimated Glomerular Filt Rate > 60; Glucose 117 mg/dL (65-110); Magnesium 1.4 mg/dL (1.6-2.3); Potassium 4.2 mmol/L (3.4-5.0); Sodium 133 mmol/L (137-145)
[2023-06-25] MEDS: SODIUM CHLORIDE 0.9% IV 500 ML IVPB (12:57)
[2023-06-25] MEDS: CISPLATIN IVPB (12:58)
--- NOTE | 2023-06-25 13:05 | PHAR ---
MAGNESIUM LOW AT 1.4. GIVE 2 GRAMS IV PER VERBAL ORDER FROM DR VILLAFANA.
[2023-06-25] MEDS: MAGNESIUM SULF 2 GM/WATER 50ML 2 GM/50 ML BAG IVPB (14:12)
[2023-06-25] MEDS: HEPARIN SODIUM LOCK FLUSH 500 UNITS/5 ML SYRINGE IV PUSH (14:48)
[2023-06-25 14:49] VITALS: BP 105/56
[2023-07-31 10:14] LABS: Hematocrit 31.9 % (42.0-52.0); Hemoglobin 10.3 g/dL (14.0-18.0); Mean Corpuscular HGB Conc 32.3 g/dl (32-36); Mean Corpuscular Hemoglobin 30.7 pg (26-34); Mean Corpuscular Volume 94.9 fl (80-100); Mean Platelet Volume 9.8 fl (7.4-10.4); Platelet Count Result 316 k/mm3 (150-375); Red Blood Count 3.36 M/mm3 (4.6-6.20); Red Cell Distribution Width 18.6 % (11.5-14.5)
[2023-07-31 10:18] LABS: Blood Urea Nitrogen 11 mg/dL (8-26); Carbon Dioxide 25 mmol/L (22-30); Chloride 102 mmol/L (98-109); Estimated Glomerular Filt Rate > 60; Glucose 98 mg/dL (70-105); Ionized Calcium (POC) 1.15 mmol/L (1.11-1.31); Potassium 3.9 mmol/L (3.5-4.9); Sodium 139 mmol/L (138-146)
[2023-07-31 10:22] LABS: Band Neutrophils Percent 1 % (0-6); Giant Platelets Present; Lymphocytes Absolute Manual 1.52 K/mm3 (1.1-4.5); Monocytes Absolute Manual 1.14 K/mm3 (0.1-0.90); Monocytes Percent Manual 6 % (3-9); Neutrophils Absolute Manual 16.34 K/mm3 (1.3-6.7); Neutrophils Percent Manual 85 % (46-73); Platelet Estimate Adequate (Adequate); Schistocytes None Seen; Total Cells Counted 100
[2023-07-31 10:23] LABS: Anisocytosis 1+; Microcytosis 1+ (NORMAL)
[2023-07-31 16:42] LABS: Alanine Aminotransferase 17 U/L (6-50); Albumin Level 3.3 g/dL (3.5-5.1); Alkaline Phosphatase 156 U/L (38-126); Anion Gap 9 mmol/L (4-12); Aspartate Amino Transferase 32 U/L (17-59); Bilirubin,Total 0.4 mg/dL (0.2-1.3); Blood Urea Nitrogen 13 mg/dL (9-20); Calcium 8.8 mg/dL (8.4-10.2); Carbon Dioxide 22 mmol/L (22-30); Chloride 106 mmol/L (98-107); Estimated Glomerular Filt Rate > 60; Glucose 89 mg/dL (65-110); Sodium 137 mmol/L (137-145)
[2023-08-06 09:00] LABS: Hematocrit 29.3 % (42.0-52.0); Hemoglobin 9.4 g/dL (14.0-18.0); Mean Corpuscular HGB Conc 32.1 g/dl (32-36); Mean Corpuscular Volume 93.6 fl (80-100); Mean Platelet Volume 9.7 fl (7.4-10.4); Platelet Count Result 384 k/mm3 (150-375); Red Blood Count 3.13 M/mm3 (4.6-6.20); Red Cell Distribution Width 18.9 % (11.5-14.5); White Blood Count 23.9 K/mm3 (4.5-10.0)
[2023-08-06 09:05] LABS: Blood Urea Nitrogen 13 mg/dL (8-26); Carbon Dioxide 22 mmol/L (22-30); Chloride 105 mmol/L (98-109); Estimated Glomerular Filt Rate > 60; Glucose 87 mg/dL (70-105); Ionized Calcium (POC) 1.21 mmol/L (1.11-1.31); Potassium 3.7 mmol/L (3.5-4.9); Sodium 139 mmol/L (138-146)
[2023-08-06 09:07] LABS: Anisocytosis 1+; Band Neutrophils Percent 3 % (0-6); Hypochromasia 1+; Lymphocytes Absolute Manual 1.91 K/mm3 (1.1-4.5); Metamyelocytes Percent 1 %; Microcytosis 1+ (NORMAL); Monocytes Absolute Manual 1.43 K/mm3 (0.1-0.90); Monocytes Percent Manual 6 % (3-9); Neutrophils Absolute Manual 20.31 K/mm3 (1.3-6.7); Neutrophils Percent Manual 82 % (46-73); Nucleated Red Blood Cells 1 %; Platelet Estimate Adequate (Adequate); Schistocytes None Seen; Total Cells Counted 100
[2023-08-06 09:17] VITALS: BP 97/62; PULSE 78; RESP 16; TEMP 37.4; O2SAT 100
[2023-08-06 09:57] LABS: Alanine Aminotransferase 14 U/L (6-50); Albumin Level 3.1 g/dL (3.5-5.1); Alkaline Phosphatase 142 U/L (38-126); Anion Gap 6 mmol/L (4-12); Aspartate Amino Transferase 31 U/L (17-59); Bilirubin,Total 0.4 mg/dL (0.2-1.3); Blood Urea Nitrogen 15 mg/dL (9-20); Calcium 8.7 mg/dL (8.4-10.2); Carbon Dioxide 21 mmol/L (22-30); Chloride 108 mmol/L (98-107); Estimated Glomerular Filt Rate > 60; Glucose 87 mg/dL (65-110); Magnesium 1.2 mg/dL (1.6-2.3); Potassium 3.7 mmol/L (3.4-5.0); Sodium 135 mmol/L (137-145)
[2023-08-06] MEDS: PEMBROLIZUMAB 200 MG in SODIUM CHLORIDE 0.9% IV 100 ML 216 MG IVPB (10:12)
[2023-08-06] MEDS: MAGNESIUM SULFATE IVPB (10:51)
[2023-08-06] MEDS: POTASSIUM CHLORIDE IVPB (10:51)
[2023-08-06] MEDS: [UNRECOGNIZED DRUG - OTHER] IVPB (10:51)
[2023-08-06] MEDS: MAGNESIUM SULF 2 GM/WATER 50ML 2 GM/50 ML BAG IVPB (10:55)
[2023-08-06 12:14] LABS: Iron 25 ug/dL (49-181)
[2023-08-06] MEDS: PALONOSETRON HCL 0.25 MG/5 ML VIAL IV PUSH (12:25)
[2023-08-06 12:26] LABS: Percent Iron Saturation 11 % (20-50); TOTAL IRON BINDING CAPACITY 227 ug/dL (265-497)
[2023-08-06] MEDS: OLANZapine DISPERTAB 5 MG PO (12:29)
[2023-08-06] MEDS: dexAMETHasone SOD 4 MG/ML INJ 12 MG in SODIUM CHLORIDE 0.9% IV 100 ML 206 MG IVPB (12:31)
[2023-08-06] MEDS: FOSAPREPITANT DIMEGLUMINE 150 MG in SODIUM CHLORIDE 0.9% IV 150 ML 300 MG IVPB (12:32)
[2023-08-06] MEDS: SODIUM CHLORIDE 0.9% IVPB ×2 (13:09→13:56)
[2023-08-06] MEDS: GEMCITABINE HCL IVPB (13:09)
--- NOTE | 2023-08-06 13:12 | PHAR ---
MAGNESIUM LOW AT 1.2. GIVE 2 GRAMS IV PER VERBAL ORDER FROM DR VILLAFANA.
[2023-08-06] MEDS: SODIUM CHLORIDE 0.9% IV 500 ML IVPB (13:55)
[2023-08-06] MEDS: CISPLATIN IVPB (13:56)
[2023-08-06] MEDS: HEPARIN SODIUM LOCK FLUSH 500 UNITS/5 ML SYRINGE IV PUSH (15:06)
[2023-08-06 15:10] VITALS: BP 111/51
[2023-08-13 08:29] LABS: Hematocrit 26.5 % (42.0-52.0); Hemoglobin 8.8 g/dL (14.0-18.0); Mean Corpuscular HGB Conc 33.2 g/dl (32-36); Mean Corpuscular Hemoglobin 30.9 pg (26-34); Mean Platelet Volume 9.2 fl (7.4-10.4); Platelet Count Result 207 k/mm3 (150-375); Red Blood Count 2.85 M/mm3 (4.6-6.20); Red Cell Distribution Width 18.2 % (11.5-14.5); White Blood Count 13.9 K/mm3 (4.5-10.0)
[2023-08-13 08:34] LABS: Blood Urea Nitrogen 12 mg/dL (8-26); Carbon Dioxide 19 mmol/L (22-30); Chloride 106 mmol/L (98-109); Estimated Glomerular Filt Rate > 60; Glucose 95 mg/dL (70-105); Ionized Calcium (POC) 1.13 mmol/L (1.11-1.31); Potassium 3.6 mmol/L (3.5-4.9); Sodium 140 mmol/L (138-146)
[2023-08-13 08:36] LABS: Anisocytosis 1+; Eosinophils Absolute Manual 0.13 K/mm3 (0.02-0.50); Eosinophils Percent Manual 1 % (0-4); Hypochromasia 1+; Microcytosis 1+ (NORMAL); Monocytes Absolute Manual 0.27 K/mm3 (0.1-0.90); Monocytes Percent Manual 2 % (3-9); Neutrophils Percent Manual 84 % (46-73); Platelet Estimate Adequate (Adequate); Schistocytes None Seen; Total Cells Counted 100
[2023-08-13 08:44] VITALS: BP 101/58; PULSE 87; TEMP 37.1; O2SAT 100
[2023-08-13] MEDS: [UNRECOGNIZED DRUG - OTHER] IVPB (09:00)
[2023-08-13] MEDS: POTASSIUM CHLORIDE IVPB (09:00)
[2023-08-13] MEDS: MAGNESIUM SULFATE IVPB ×2 (09:00→13:10)
[2023-08-13 09:50] LABS: Alanine Aminotransferase 25 U/L (6-50); Albumin Level 3.3 g/dL (3.5-5.1); Alkaline Phosphatase 138 U/L (38-126); Anion Gap 9 mmol/L (4-12); Aspartate Amino Transferase 28 U/L (17-59); Bilirubin,Total 0.4 mg/dL (0.2-1.3); Blood Urea Nitrogen 14 mg/dL (9-20); Calcium 8.1 mg/dL (8.4-10.2); Carbon Dioxide 18 mmol/L (22-30); Chloride 111 mmol/L (98-107); Estimated Glomerular Filt Rate > 60; Glucose 95 mg/dL (65-110); Magnesium 1.1 mg/dL (1.6-2.3); Potassium 3.5 mmol/L (3.4-5.0); Sodium 138 mmol/L (137-145)
--- NOTE | 2023-08-13 10:11 | PHAR ---
MAGNESIUM LOW AT 1.1. GIVE 4 GRAMS IV PER VERBAL ORDER FROM DR VILLAFANA.
[2023-08-13] MEDS: OLANZapine DISPERTAB 5 MG PO (10:22)
[2023-08-13] MEDS: PALONOSETRON HCL 0.25 MG/5 ML VIAL IV PUSH (10:22)
[2023-08-13] MEDS: dexAMETHasone SOD 4 MG/ML INJ 12 MG in SODIUM CHLORIDE 0.9% IV 100 ML 206 MG IVPB (10:24)
[2023-08-13] MEDS: FOSAPREPITANT DIMEGLUMINE 150 MG in SODIUM CHLORIDE 0.9% IV 150 ML 300 MG IVPB (10:24)
[2023-08-13] MEDS: SODIUM CHLORIDE 0.9% IVPB ×2 (11:07→11:56)
[2023-08-13] MEDS: GEMCITABINE HCL IVPB (11:07)
[2023-08-13] MEDS: SODIUM CHLORIDE 0.9% IV 500 ML IVPB (11:55)
[2023-08-13] MEDS: CISPLATIN IVPB (11:56)
[2023-08-13] MEDS: STERILE FOR IVPB (13:10)
[2023-08-13] MEDS: WATER IVPB (13:10)
[2023-08-13 14:10] VITALS: BP 127/61
[2023-08-13] MEDS: HEPARIN SODIUM LOCK FLUSH 500 UNITS/5 ML SYRINGE IV PUSH (14:14)
--- NOTE | 2023-08-13 15:59 | PHAR ---
PER DR VILLAFANA WE ARE CHANGING THE PATIENTS PREHYDRATION TO 4 GRAMS OF MAGNESIUM SULFATE FROM 1 GRAM SINCE THE PATIENT IS CONSISTENTLY LOW.
[2023-08-27 09:01] LABS: Basophils Percent Auto 0.2 % (0.2-1.2); Eosinophils Absolute Auto 0.1 K/mm3 (0-0.3); Eosinophils Percent Auto 0.7 % (0-4.4); Hematocrit 27.2 % (42.0-52.0); Lymphocytes Percent Auto 14.1 % (18.3-44.2); Mean Corpuscular HGB Conc 33.1 g/dl (32-36); Mean Corpuscular Hemoglobin 32.1 pg (26-34); Mean Corpuscular Volume 97.1 fl (80-100); Mean Platelet Volume 10.5 fl (7.4-10.4); Monocytes Absolute Auto 1.4 K/mm3 (0.1-0.6); Monocytes Percent Auto 14.1 % (2.6-8.5); Neutrophils Absolute Auto 6.9 K/mm3 (1.3-6.7); Neutrophils Percent Auto 69.9 % (45.5-73.1); Platelet Count Result 328 k/mm3 (150-375); Red Cell Distribution Width 20.8 % (11.5-14.5); White Blood Count 9.9 K/mm3 (4.5-10.0)
[2023-08-27 09:05] LABS: Blood Urea Nitrogen 7 mg/dL (8-26); Carbon Dioxide 20 mmol/L (22-30); Chloride 108 mmol/L (98-109); Estimated Glomerular Filt Rate > 60; Glucose 90 mg/dL (70-105); Ionized Calcium (POC) 1.19 mmol/L (1.11-1.31); Potassium 2.9 mmol/L (3.5-4.9); Sodium 143 mmol/L (138-146)
[2023-08-27 09:18] VITALS: BP 112/69; PULSE 77; TEMP 36.6; O2SAT 100
[2023-08-27] MEDS: PEMBROLIZUMAB 200 MG in SODIUM CHLORIDE 0.9% IV 100 ML 216 MG IVPB (09:40)
[2023-08-27] MEDS: [UNRECOGNIZED DRUG - OTHER] IVPB (10:17)
[2023-08-27] MEDS: MAGNESIUM SULFATE IVPB (10:17)
[2023-08-27] MEDS: POTASSIUM CHLORIDE IVPB (10:17)
[2023-08-27 10:25] LABS: Alanine Aminotransferase 24 U/L (6-50); Alkaline Phosphatase 125 U/L (38-126); Anion Gap 6 mmol/L (4-12); Aspartate Amino Transferase 32 U/L (17-59); Bilirubin,Total 0.4 mg/dL (0.2-1.3); Blood Urea Nitrogen 8 mg/dL (9-20); Calcium 8.3 mg/dL (8.4-10.2); Carbon Dioxide 20 mmol/L (22-30); Chloride 114 mmol/L (98-107); Estimated Glomerular Filt Rate > 60; Glucose 88 mg/dL (65-110); Potassium 2.8 mmol/L (3.4-5.0); Sodium 140 mmol/L (137-145)
[2023-08-27] MEDS: PALONOSETRON HCL 0.25 MG/5 ML VIAL IV PUSH (11:43)
[2023-08-27] MEDS: OLANZapine DISPERTAB 5 MG PO (11:43)
[2023-08-27] MEDS: dexAMETHasone SOD 4 MG/ML INJ 12 MG in SODIUM CHLORIDE 0.9% IV 100 ML 206 MG IVPB (11:47)
[2023-08-27] MEDS: FOSAPREPITANT DIMEGLUMINE 150 MG in SODIUM CHLORIDE 0.9% IV 150 ML 300 MG IVPB (11:47)
[2023-08-27] MEDS: SODIUM CHLORIDE 0.9% IVPB ×2 (12:39→13:28)
[2023-08-27] MEDS: GEMCITABINE HCL IVPB (12:39)
[2023-08-27] MEDS: CISPLATIN IVPB (13:28)
[2023-08-27] MEDS: SODIUM CHLORIDE 0.9% IV 500 ML IVPB (13:28)
[2023-08-27] MEDS: HEPARIN SODIUM LOCK FLUSH 500 UNITS/5 ML SYRINGE IV PUSH (14:42)
[2023-08-27 14:44] VITALS: BP 113/64
[2023-09-03 08:26] LABS: Hemoglobin 9.1 g/dL (14.0-18.0); Mean Corpuscular HGB Conc 32.5 g/dl (32-36); Mean Corpuscular Hemoglobin 32.3 pg (26-34); Mean Corpuscular Volume 99.3 fl (80-100); Mean Platelet Volume 8.9 fl (7.4-10.4); Platelet Count Result 177 k/mm3 (150-375); Red Blood Count 2.82 M/mm3 (4.6-6.20); Red Cell Distribution Width 19.5 % (11.5-14.5); White Blood Count 8.7 K/mm3 (4.5-10.0)
[2023-09-03 08:31] LABS: Blood Urea Nitrogen 7 mg/dL (8-26); Carbon Dioxide 20 mmol/L (22-30); Chloride 110 mmol/L (98-109); Estimated Glomerular Filt Rate > 60; Glucose 89 mg/dL (70-105); Ionized Calcium (POC) 1.24 mmol/L (1.11-1.31); Potassium 3.9 mmol/L (3.5-4.9); Sodium 143 mmol/L (138-146)
[2023-09-03 08:33] LABS: Band Neutrophils Percent 3 % (0-6); Lymphocytes Absolute Manual 1.91 K/mm3 (1.1-4.5); Metamyelocytes Percent 2 %; Monocytes Absolute Manual 0.52 K/mm3 (0.1-0.90); Monocytes Percent Manual 6 % (3-9); Neutrophils Absolute Manual 6.09 K/mm3 (1.3-6.7); Neutrophils Percent Manual 67 % (46-73); Nucleated Red Blood Cells 1 %; Total Cells Counted 100
[2023-09-03 08:35] LABS: Hypochromasia 2+; Platelet Estimate Adequate (Adequate); Schistocytes None Seen
[2023-09-03 09:10] VITALS: BP 117/60; PULSE 76; TEMP 37.1; O2SAT 100
[2023-09-03] MEDS: POTASSIUM CHLORIDE IVPB (09:30)
[2023-09-03] MEDS: MAGNESIUM SULFATE IVPB (09:30)
[2023-09-03] MEDS: [UNRECOGNIZED DRUG - OTHER] IVPB (09:30)
[2023-09-03] MEDS: PALONOSETRON HCL 0.25 MG/5 ML VIAL IV PUSH (10:40)
[2023-09-03] MEDS: FOSAPREPITANT DIMEGLUMINE 150 MG in SODIUM CHLORIDE 0.9% IV 150 ML 300 MG IVPB (10:42)
[2023-09-03] MEDS: dexAMETHasone SOD 4 MG/ML INJ 12 MG in SODIUM CHLORIDE 0.9% IV 100 ML 206 MG IVPB (10:43)
[2023-09-03] MEDS: OLANZapine DISPERTAB 5 MG PO (10:44)
[2023-09-03 11:01] LABS: Alanine Aminotransferase 36 U/L (6-50); Albumin Level 3.6 g/dL (3.5-5.1); Alkaline Phosphatase 151 U/L (38-126); Aspartate Amino Transferase 37 U/L (17-59); Bilirubin,Total 0.5 mg/dL (0.2-1.3); Blood Urea Nitrogen 9 mg/dL (9-20); Calcium 8.9 mg/dL (8.4-10.2); Carbon Dioxide 19 mmol/L (22-30); Estimated Glomerular Filt Rate > 60; Glucose 87 mg/dL (65-110); Magnesium 1.2 mg/dL (1.6-2.3)
[2023-09-03 11:09] LABS: Anion Gap 8 mmol/L (4-12); Chloride 114 mmol/L (98-107); Potassium 3.9 mmol/L (3.4-5.0); Sodium 141 mmol/L (137-145)
[2023-09-03] MEDS: SODIUM CHLORIDE 0.9% IVPB ×2 (11:25→12:17)
[2023-09-03] MEDS: GEMCITABINE HCL IVPB (11:25)
[2023-09-03] MEDS: CISPLATIN IVPB (12:17)
[2023-09-03] MEDS: SODIUM CHLORIDE 0.9% IV 500 ML IVPB (12:17)
[2023-09-03 13:32] VITALS: BP 135/83
[2023-09-03] MEDS: HEPARIN SODIUM LOCK FLUSH 500 UNITS/5 ML SYRINGE IV PUSH (13:36)
[2023-09-17 08:31] LABS: Basophils Percent Auto 0.3 % (0.2-1.2); Eosinophils Absolute Auto 0.1 K/mm3 (0-0.3); Eosinophils Percent Auto 0.7 % (0-4.4); Hematocrit 29.1 % (42.0-52.0); Hemoglobin 9.5 g/dL (14.0-18.0); Immature Granulocyte Absolute 0.06 K/mm3 (0.00-0.031); Immature Granulocyte Percent A 0.8 % (0-0.5); Lymphocytes Absolute Auto 1.28 K/mm3 (0.9-3.2); Lymphocytes Percent Auto 16.9 % (18.3-44.2); Mean Corpuscular HGB Conc 32.6 g/dl (32-36); Mean Corpuscular Hemoglobin 32.9 pg (26-34); Mean Corpuscular Volume 100.7 fl (80-100); Mean Platelet Volume 9.7 fl (7.4-10.4); Monocytes Absolute Auto 1.2 K/mm3 (0.1-0.6); Monocytes Percent Auto 15.8 % (2.6-8.5); Neutrophils Percent Auto 65.5 % (45.5-73.1); Platelet Count Result 239 k/mm3 (150-375); Red Blood Count 2.89 M/mm3 (4.6-6.20); Red Cell Distribution Width 18.3 % (11.5-14.5); White Blood Count 7.6 K/mm3 (4.5-10.0)
[2023-09-17 08:36] LABS: Blood Urea Nitrogen 10 mg/dL (8-26); Carbon Dioxide 24 mmol/L (22-30); Chloride 106 mmol/L (98-109); Estimated Glomerular Filt Rate > 60; Glucose 136 mg/dL (70-105); Ionized Calcium (POC) 1.22 mmol/L (1.11-1.31); Sodium 144 mmol/L (138-146)
[2023-09-17 09:21] LABS: Alanine Aminotransferase 46 U/L (6-50); Albumin Level 3.4 g/dL (3.5-5.1); Alkaline Phosphatase 149 U/L (38-126); Anion Gap 9 mmol/L (4-12); Aspartate Amino Transferase 45 U/L (17-59); Bilirubin,Total 0.4 mg/dL (0.2-1.3); Blood Urea Nitrogen 12 mg/dL (9-20); Calcium 8.5 mg/dL (8.4-10.2); Carbon Dioxide 22 mmol/L (22-30); Chloride 111 mmol/L (98-107); Estimated Glomerular Filt Rate > 60; Glucose 135 mg/dL (65-110); Magnesium 1.3 mg/dL (1.6-2.3); Sodium 142 mmol/L (137-145)
[2023-09-17 09:30] VITALS: BP 122/65; PULSE 82; TEMP 36.3; O2SAT 100
[2023-09-17] MEDS: PEMBROLIZUMAB 200 MG in SODIUM CHLORIDE 0.9% IV 100 ML 216 MG IVPB (09:42)
[2023-09-17] MEDS: POTASSIUM CHLORIDE IVPB (10:23)
[2023-09-17] MEDS: [UNRECOGNIZED DRUG - OTHER] IVPB (10:23)
[2023-09-17] MEDS: MAGNESIUM SULFATE IVPB (10:23)
[2023-09-17] MEDS: FOSAPREPITANT DIMEGLUMINE 150 MG in SODIUM CHLORIDE 0.9% IV 150 ML 300 MG IVPB (11:57)
[2023-09-17] MEDS: dexAMETHasone SOD 4 MG/ML INJ 12 MG in SODIUM CHLORIDE 0.9% IV 100 ML 206 MG IVPB (11:59)
[2023-09-17] MEDS: PALONOSETRON HCL 0.25 MG/5 ML VIAL IV PUSH (11:59)
[2023-09-17] MEDS: GEMCITABINE HCL IVPB (12:49)
[2023-09-17] MEDS: SODIUM CHLORIDE 0.9% IVPB ×2 (12:49→13:39)
[2023-09-17] MEDS: CISPLATIN IVPB (13:39)
[2023-09-17] MEDS: SODIUM CHLORIDE 0.9% IV 500 ML IVPB (14:40)
[2023-09-17 14:53] VITALS: BP 113/58
[2023-09-24 09:20] LABS: Hematocrit 29.2 % (42.0-52.0); Hemoglobin 9.7 g/dL (14.0-18.0); Mean Corpuscular HGB Conc 33.2 g/dl (32-36); Mean Corpuscular Hemoglobin 33.3 pg (26-34); Mean Corpuscular Volume 100.3 fl (80-100); Mean Platelet Volume 9.3 fl (7.4-10.4); Platelet Count Result 145 k/mm3 (150-375); Red Blood Count 2.91 M/mm3 (4.6-6.20); Red Cell Distribution Width 16.7 % (11.5-14.5); White Blood Count 7.2 K/mm3 (4.5-10.0)
[2023-09-24 09:25] LABS: Blood Urea Nitrogen 13 mg/dL (8-26); Carbon Dioxide 21 mmol/L (22-30); Chloride 106 mmol/L (98-109); Estimated Glomerular Filt Rate > 60; Glucose 105 mg/dL (70-105); Ionized Calcium (POC) 1.18 mmol/L (1.11-1.31); Potassium 3.8 mmol/L (3.5-4.9); Sodium 140 mmol/L (138-146)
[2023-09-24 09:28] LABS: Anisocytosis 1+; Band Neutrophils Percent 1 % (0-6); Lymphocytes Absolute Manual 1.58 K/mm3 (1.1-4.5); Metamyelocytes Percent 1 %; Microcytosis 1+ (NORMAL); Monocytes Percent Manual 7 % (3-9); Neutrophils Absolute Manual 5.04 K/mm3 (1.3-6.7); Neutrophils Percent Manual 69 % (46-73); Ovalocytes 1+; Platelet Estimate Slightly Decreased (Adequate); Poikilocytosis 1+; Schistocytes None Seen; Total Cells Counted 100
[2023-09-24 09:42] VITALS: BP 116/61; PULSE 72; TEMP 36.6; O2SAT 100
[2023-09-24] MEDS: POTASSIUM CHLORIDE IVPB (10:10)
[2023-09-24] MEDS: MAGNESIUM SULFATE IVPB (10:10)
[2023-09-24] MEDS: [UNRECOGNIZED DRUG - OTHER] IVPB (10:10)
[2023-09-24 10:12] LABS: Alanine Aminotransferase 52 U/L (6-50); Albumin Level 3.4 g/dL (3.5-5.1); Alkaline Phosphatase 167 U/L (38-126); Anion Gap 8 mmol/L (4-12); Aspartate Amino Transferase 44 U/L (17-59); Bilirubin,Total 0.5 mg/dL (0.2-1.3); Blood Urea Nitrogen 14 mg/dL (9-20); Calcium 8.6 mg/dL (8.4-10.2); Carbon Dioxide 19 mmol/L (22-30); Chloride 111 mmol/L (98-107); Estimated Glomerular Filt Rate > 60; Glucose 102 mg/dL (65-110); Magnesium 1.1 mg/dL (1.6-2.3); Potassium 3.8 mmol/L (3.4-5.0); Sodium 138 mmol/L (137-145)
--- NOTE | 2023-09-24 11:02 | PHAR ---
MAGNESIUM LOW AT 1.1. GIVE 2 GRAMS IV PER VERBAL ORDER FROM NILTON BAI
[2023-09-24] MEDS: PALONOSETRON HCL 0.25 MG/5 ML VIAL IV PUSH (11:22)
[2023-09-24] MEDS: dexAMETHasone SOD 4 MG/ML INJ 12 MG in SODIUM CHLORIDE 0.9% IV 100 ML 206 MG IVPB (11:22)
[2023-09-24] MEDS: FOSAPREPITANT DIMEGLUMINE 150 MG in SODIUM CHLORIDE 0.9% IV 150 ML 300 MG IVPB (11:22)
[2023-09-24] MEDS: SODIUM CHLORIDE 0.9% IVPB ×2 (12:16→12:52)
[2023-09-24] MEDS: GEMCITABINE HCL IVPB (12:16)
[2023-09-24] MEDS: SODIUM CHLORIDE 0.9% IV 500 ML IVPB (12:52)
[2023-09-24] MEDS: CISPLATIN IVPB (12:52)
[2023-09-24] MEDS: MAGNESIUM SULF 2 GM/WATER 50ML 2 GM/50 ML BAG IVPB (13:58)
[2023-09-24 14:33] VITALS: BP 134/62
[2023-09-24] MEDS: HEPARIN SODIUM LOCK FLUSH 500 UNITS/5 ML SYRINGE IV PUSH (14:36)
[2023-10-08 09:16] LABS: Basophils Percent Auto 0.3 % (0.2-1.2); Eosinophils Percent Auto 0.4 % (0-4.4); Hematocrit 32.2 % (42.0-52.0); Hemoglobin 10.6 g/dL (14.0-18.0); Immature Granulocyte Absolute 0.08 K/mm3 (0.00-0.031); Immature Granulocyte Percent A 1.1 % (0-0.5); Lymphocytes Absolute Auto 1.29 K/mm3 (0.9-3.2); Lymphocytes Percent Auto 18.5 % (18.3-44.2); Mean Corpuscular HGB Conc 32.9 g/dl (32-36); Mean Corpuscular Hemoglobin 33.9 pg (26-34); Mean Corpuscular Volume 102.9 fl (80-100); Mean Platelet Volume 10.8 fl (7.4-10.4); Monocytes Absolute Auto 1.3 K/mm3 (0.1-0.6); Monocytes Percent Auto 18.2 % (2.6-8.5); Neutrophils Absolute Auto 4.3 K/mm3 (1.3-6.7); Neutrophils Percent Auto 61.5 % (45.5-73.1); Platelet Count Result 233 k/mm3 (150-375); Red Blood Count 3.13 M/mm3 (4.6-6.20)
[2023-10-08 09:20] LABS: Blood Urea Nitrogen 19 mg/dL (8-26); Carbon Dioxide 19 mmol/L (22-30); Chloride 108 mmol/L (98-109); Estimated Glomerular Filt Rate > 60; Glucose 115 mg/dL (70-105); Ionized Calcium (POC) 1.24 mmol/L (1.11-1.31); Potassium 4.2 mmol/L (3.5-4.9); Sodium 138 mmol/L (138-146)
[2023-10-08 09:27] VITALS: BP 115/64; PULSE 86; TEMP 36.6; O2SAT 100
[2023-10-08] MEDS: PEMBROLIZUMAB 200 MG in SODIUM CHLORIDE 0.9% IV 100 ML 216 MG IVPB (10:06)
[2023-10-08 10:31] LABS: Alanine Aminotransferase 56 U/L (6-50); Albumin Level 3.6 g/dL (3.5-5.1); Alkaline Phosphatase 168 U/L (38-126); Anion Gap 12 mmol/L (4-12); Aspartate Amino Transferase 55 U/L (17-59); Bilirubin,Total 0.6 mg/dL (0.2-1.3); Blood Urea Nitrogen 19 mg/dL (9-20); Calcium 8.8 mg/dL (8.4-10.2); Carbon Dioxide 18 mmol/L (22-30); Chloride 107 mmol/L (98-107); Estimated Glomerular Filt Rate > 60; Glucose 114 mg/dL (65-110); Magnesium 1.1 mg/dL (1.6-2.3); Potassium 4.2 mmol/L (3.4-5.0); Sodium 137 mmol/L (137-145)
[2023-10-08] MEDS: POTASSIUM CHLORIDE IVPB (11:02)
[2023-10-08] MEDS: MAGNESIUM SULFATE IVPB (11:02)
[2023-10-08] MEDS: [UNRECOGNIZED DRUG - OTHER] IVPB (11:02)
[2023-10-08] MEDS: PALONOSETRON HCL 0.25 MG/5 ML VIAL IV PUSH (12:22)
[2023-10-08] MEDS: dexAMETHasone SOD 4 MG/ML INJ 12 MG in SODIUM CHLORIDE 0.9% IV 100 ML 206 MG IVPB (12:24)
[2023-10-08] MEDS: FOSAPREPITANT DIMEGLUMINE 150 MG in SODIUM CHLORIDE 0.9% IV 150 ML 300 MG IVPB (12:24)
[2023-10-08] MEDS: GEMCITABINE HCL IVPB (13:05)
[2023-10-08] MEDS: SODIUM CHLORIDE 0.9% IVPB ×2 (13:05→13:43)
[2023-10-08] MEDS: SODIUM CHLORIDE 0.9% IV 500 ML IVPB (13:43)
[2023-10-08] MEDS: CISPLATIN IVPB (13:43)
[2023-10-08 14:45] VITALS: BP 124/61
[2023-10-08] MEDS: HEPARIN SODIUM LOCK FLUSH 500 UNITS/5 ML SYRINGE IV PUSH (14:51)
[2023-10-15 09:24] LABS: Basophils Percent Auto 0.2 % (0.2-1.2); Hemoglobin 9.8 g/dL (14.0-18.0); Immature Granulocyte Percent A 3.8 % (0-0.5); Lymphocytes Absolute Auto 1.39 K/mm3 (0.9-3.2); Lymphocytes Percent Auto 26.7 % (18.3-44.2); Mean Corpuscular HGB Conc 33.8 g/dl (32-36); Mean Corpuscular Hemoglobin 33.8 pg (26-34); Mean Platelet Volume 9.3 fl (7.4-10.4); Monocytes Absolute Auto 0.5 K/mm3 (0.1-0.6); Monocytes Percent Auto 9.2 % (2.6-8.5); Neutrophils Absolute Auto 3.1 K/mm3 (1.3-6.7); Neutrophils Percent Auto 60.1 % (45.5-73.1); Platelet Count Result 205 k/mm3 (150-375); Red Cell Distribution Width 16.2 % (11.5-14.5); White Blood Count 5.2 K/mm3 (4.5-10.0)
[2023-10-15 09:29] LABS: Blood Urea Nitrogen 21 mg/dL (8-26); Carbon Dioxide 20 mmol/L (22-30); Chloride 106 mmol/L (98-109); Estimated Glomerular Filt Rate > 60; Glucose 119 mg/dL (70-105); Ionized Calcium (POC) 1.23 mmol/L (1.11-1.31); Potassium 3.2 mmol/L (3.5-4.9); Sodium 140 mmol/L (138-146)
[2023-10-15 10:26] VITALS: BP 119/74; PULSE 74; TEMP 36.2; O2SAT 100
[2023-10-15] MEDS: POTASSIUM CHLORIDE IVPB (10:48)
[2023-10-15] MEDS: [UNRECOGNIZED DRUG - OTHER] IVPB (10:48)
[2023-10-15] MEDS: MAGNESIUM SULFATE IVPB (10:48)
[2023-10-15 11:50] LABS: Alanine Aminotransferase 76 U/L (6-50); Albumin Level 3.6 g/dL (3.5-5.1); Alkaline Phosphatase 153 U/L (38-126); Anion Gap 11 mmol/L (4-12); Aspartate Amino Transferase 63 U/L (17-59); Bilirubin,Total 0.4 mg/dL (0.2-1.3); Blood Urea Nitrogen 21 mg/dL (9-20); Calcium 8.4 mg/dL (8.4-10.2); Carbon Dioxide 19 mmol/L (22-30); Chloride 107 mmol/L (98-107); Estimated Glomerular Filt Rate > 60; Glucose 117 mg/dL (65-110); Magnesium 1.1 mg/dL (1.6-2.3); Potassium 3.2 mmol/L (3.4-5.0); Sodium 137 mmol/L (137-145)
[2023-10-15] MEDS: dexAMETHasone SOD 4 MG/ML INJ 12 MG in SODIUM CHLORIDE 0.9% IV 100 ML 206 MG IVPB (12:02)
[2023-10-15] MEDS: FOSAPREPITANT DIMEGLUMINE 150 MG in SODIUM CHLORIDE 0.9% IV 150 ML 300 MG IVPB (12:02)
[2023-10-15] MEDS: PALONOSETRON HCL 0.25 MG/5 ML VIAL IV PUSH (12:04)
[2023-10-15] MEDS: GEMCITABINE HCL IVPB (12:56)
[2023-10-15] MEDS: SODIUM CHLORIDE 0.9% IVPB ×2 (12:56→13:36)
[2023-10-15] MEDS: SODIUM CHLORIDE 0.9% IV 500 ML IVPB (13:36)
[2023-10-15] MEDS: CISPLATIN IVPB (13:36)
[2023-10-15 14:39] VITALS: BP 121/62
[2023-10-15] MEDS: HEPARIN SODIUM LOCK FLUSH 500 UNITS/5 ML SYRINGE IV PUSH (14:46)
[2023-10-29 08:29] LABS: Basophils Percent Auto 0.3 % (0.2-1.2); Eosinophils Percent Auto 0.3 % (0-4.4); Hematocrit 31.6 % (42.0-52.0); Hemoglobin 10.4 g/dL (14.0-18.0); Immature Granulocyte Absolute 0.06 K/mm3 (0.00-0.031); Lymphocytes Absolute Auto 1.34 K/mm3 (0.9-3.2); Lymphocytes Percent Auto 22.7 % (18.3-44.2); Mean Corpuscular HGB Conc 32.9 g/dl (32-36); Mean Corpuscular Volume 103.3 fl (80-100); Mean Platelet Volume 10.8 fl (7.4-10.4); Monocytes Absolute Auto 1.1 K/mm3 (0.1-0.6); Monocytes Percent Auto 18.1 % (2.6-8.5); Neutrophils Absolute Auto 3.4 K/mm3 (1.3-6.7); Neutrophils Percent Auto 57.6 % (45.5-73.1); Platelet Count Result 210 k/mm3 (150-375); Red Blood Count 3.06 M/mm3 (4.6-6.20); Red Cell Distribution Width 17.4 % (11.5-14.5); White Blood Count 5.9 K/mm3 (4.5-10.0)
[2023-10-29 08:34] LABS: Blood Urea Nitrogen 19 mg/dL (8-26); Carbon Dioxide 18 mmol/L (22-30); Chloride 109 mmol/L (98-109); Estimated Glomerular Filt Rate > 60; Glucose 114 mg/dL (70-105); Ionized Calcium (POC) 1.24 mmol/L (1.11-1.31); Potassium 4.6 mmol/L (3.5-4.9); Sodium 140 mmol/L (138-146)
[2023-10-29 08:36] VITALS: BP 107/70; PULSE 70; TEMP 36.6; O2SAT 100
[2023-10-29] MEDS: PEMBROLIZUMAB 200 MG in SODIUM CHLORIDE 0.9% IV 100 ML 216 MG IVPB (09:04)
[2023-10-29] MEDS: POTASSIUM CHLORIDE IVPB (09:54)
[2023-10-29] MEDS: MAGNESIUM SULFATE IVPB (09:54)
[2023-10-29] MEDS: [UNRECOGNIZED DRUG - OTHER] IVPB (09:54)
[2023-10-29 10:13] LABS: Alanine Aminotransferase 73 U/L (6-50); Albumin Level 3.5 g/dL (3.5-5.1); Alkaline Phosphatase 160 U/L (38-126); Anion Gap 12 mmol/L (4-12); Aspartate Amino Transferase 73 U/L (17-59); Bilirubin,Total 0.4 mg/dL (0.2-1.3); Blood Urea Nitrogen 20 mg/dL (9-20); Carbon Dioxide 17 mmol/L (22-30); Chloride 109 mmol/L (98-107); Estimated Glomerular Filt Rate > 60; Glucose 113 mg/dL (65-110); Magnesium 1.3 mg/dL (1.6-2.3); Potassium 4.6 mmol/L (3.4-5.0); Sodium 138 mmol/L (137-145)
[2023-10-29] MEDS: dexAMETHasone SOD 4 MG/ML INJ 12 MG in SODIUM CHLORIDE 0.9% IV 100 ML 206 MG IVPB (11:06)
[2023-10-29] MEDS: PALONOSETRON HCL 0.25 MG/5 ML VIAL IV PUSH (11:06)
[2023-10-29] MEDS: FOSAPREPITANT DIMEGLUMINE 150 MG in SODIUM CHLORIDE 0.9% IV 150 ML 300 MG IVPB (11:07)
[2023-10-29] MEDS: GEMCITABINE HCL IVPB (12:02)
[2023-10-29] MEDS: SODIUM CHLORIDE 0.9% IVPB ×2 (12:02→12:43)
[2023-10-29] MEDS: SODIUM CHLORIDE 0.9% IV 500 ML IVPB (12:42)
[2023-10-29] MEDS: CISPLATIN IVPB (12:43)
[2023-10-29 13:53] VITALS: BP 113/64
[2023-11-05 08:44] LABS: Hematocrit 31.5 % (42.0-52.0); Hemoglobin 10.7 g/dL (14.0-18.0); Mean Corpuscular Hemoglobin 34.5 pg (26-34); Mean Corpuscular Volume 101.6 fl (80-100); Mean Platelet Volume 9.9 fl (7.4-10.4); Platelet Count Result 211 k/mm3 (150-375); Red Cell Distribution Width 15.3 % (11.5-14.5); White Blood Count 6.7 K/mm3 (4.5-10.0)
[2023-11-05 08:55] LABS: Anisocytosis 1+; Band Neutrophils Percent 5 % (0-6); Lymphocytes Absolute Manual 1.87 K/mm3 (1.1-4.5); Metamyelocytes Percent 1 %; Microcytosis 1+ (NORMAL); Monocytes Absolute Manual 0.53 K/mm3 (0.1-0.90); Monocytes Percent Manual 8 % (3-9); Neutrophils Absolute Manual 4.22 K/mm3 (1.3-6.7); Neutrophils Percent Manual 58 % (46-73); Ovalocytes 1+; Platelet Estimate Adequate (Adequate); Poikilocytosis 1+; Schistocytes None Seen; Total Cells Counted 100
[2023-11-05 08:55] LABS: Blood Urea Nitrogen 24 mg/dL (8-26); Carbon Dioxide 18 mmol/L (22-30); Chloride 108 mmol/L (98-109); Estimated Glomerular Filt Rate > 60; Glucose 120 mg/dL (70-105); Ionized Calcium (POC) 1.27 mmol/L (1.11-1.31); Sodium 137 mmol/L (138-146)
[2023-11-05 09:43] VITALS: BP 107/74; PULSE 70; TEMP 36.6; O2SAT 100
[2023-11-05] MEDS: MAGNESIUM SULFATE IVPB (10:18)
[2023-11-05] MEDS: SODIUM CHLORIDE 0.9% IVPB ×3 (10:18→13:04)
[2023-11-05 10:28] LABS: Alanine Aminotransferase 112 U/L (6-50); Albumin Level 3.6 g/dL (3.5-5.1); Alkaline Phosphatase 200 U/L (38-126); Anion Gap 11 mmol/L (4-12); Aspartate Amino Transferase 85 U/L (17-59); Bilirubin,Total 0.3 mg/dL (0.2-1.3); Blood Urea Nitrogen 25 mg/dL (9-20); Calcium 9.2 mg/dL (8.4-10.2); Carbon Dioxide 17 mmol/L (22-30); Chloride 106 mmol/L (98-107); Estimated Glomerular Filt Rate > 60; Glucose 118 mg/dL (65-110); Magnesium 1.3 mg/dL (1.6-2.3); Sodium 134 mmol/L (137-145)
[2023-11-05] MEDS: PALONOSETRON HCL 0.25 MG/5 ML VIAL IV PUSH (11:35)
[2023-11-05] MEDS: dexAMETHasone SOD 4 MG/ML INJ 12 MG in SODIUM CHLORIDE 0.9% IV 100 ML 206 MG IVPB (11:38)
[2023-11-05] MEDS: FOSAPREPITANT DIMEGLUMINE 150 MG in SODIUM CHLORIDE 0.9% IV 150 ML 300 MG IVPB (11:39)
[2023-11-05] MEDS: GEMCITABINE HCL IVPB (12:17)
[2023-11-05] MEDS: SODIUM CHLORIDE 0.9% IV 500 ML IVPB (13:01)
[2023-11-05] MEDS: CISPLATIN IVPB (13:04)
[2023-11-05 14:24] VITALS: BP 119/53
[2023-11-05] MEDS: HEPARIN SODIUM LOCK FLUSH 500 UNITS/5 ML SYRINGE IV PUSH (14:31)
[2023-11-26 09:30] LABS: Basophils Percent Auto 0.4 % (0.2-1.2); Eosinophils Percent Auto 0.3 % (0-4.4); Hematocrit 31.6 % (42.0-52.0); Hemoglobin 10.2 g/dL (14.0-18.0); Immature Granulocyte Absolute 0.18 K/mm3 (0.00-0.031); Immature Granulocyte Percent A 2.3 % (0-0.5); Lymphocytes Absolute Auto 1.52 K/mm3 (0.9-3.2); Lymphocytes Percent Auto 19.4 % (18.3-44.2); Mean Corpuscular HGB Conc 32.3 g/dl (32-36); Mean Corpuscular Hemoglobin 34.3 pg (26-34); Mean Corpuscular Volume 106.4 fl (80-100); Mean Platelet Volume 10.8 fl (7.4-10.4); Monocytes Absolute Auto 1.5 K/mm3 (0.1-0.6); Monocytes Percent Auto 19.5 % (2.6-8.5); Neutrophils Absolute Auto 4.6 K/mm3 (1.3-6.7); Neutrophils Percent Auto 58.1 % (45.5-73.1); Platelet Count Result 194 k/mm3 (150-375); Red Blood Count 2.97 M/mm3 (4.6-6.20); Red Cell Distribution Width 16.9 % (11.5-14.5); White Blood Count 7.8 K/mm3 (4.5-10.0)
[2023-11-26 09:37] LABS: Blood Urea Nitrogen 14 mg/dL (8-26); Carbon Dioxide 19 mmol/L (22-30); Chloride 110 mmol/L (98-109); Estimated Glomerular Filt Rate > 60; Glucose 95 mg/dL (70-105); Ionized Calcium (POC) 1.19 mmol/L (1.11-1.31); Potassium 3.2 mmol/L (3.5-4.9); Sodium 144 mmol/L (138-146)
[2023-11-26 11:15] LABS: Alanine Aminotransferase 87 U/L (6-50); Albumin Level 3.1 g/dL (3.5-5.1); Alkaline Phosphatase 147 U/L (38-126); Anion Gap 9 mmol/L (4-12); Aspartate Amino Transferase 114 U/L (17-59); Bilirubin,Total 0.5 mg/dL (0.2-1.3); Blood Urea Nitrogen 15 mg/dL (9-20); Calcium 8.3 mg/dL (8.4-10.2); Carbon Dioxide 21 mmol/L (22-30); Chloride 111 mmol/L (98-107); Estimated Glomerular Filt Rate > 60; Glucose 94 mg/dL (65-110); Potassium 3.2 mmol/L (3.4-5.0); Sodium 141 mmol/L (137-145)
[2023-12-02 09:43] LABS: Basophils Percent Auto 0.3 % (0.2-1.2); Eosinophils Percent Auto 0.2 % (0-4.4); Hematocrit 32.5 % (42.0-52.0); Hemoglobin 10.5 g/dL (14.0-18.0); Immature Granulocyte Absolute 0.19 K/mm3 (0.00-0.031); Immature Granulocyte Percent A 1.7 % (0-0.5); Lymphocytes Absolute Auto 1.46 K/mm3 (0.9-3.2); Lymphocytes Percent Auto 13.4 % (18.3-44.2); Mean Corpuscular HGB Conc 32.3 g/dl (32-36); Mean Corpuscular Hemoglobin 34.4 pg (26-34); Mean Corpuscular Volume 106.6 fl (80-100); Mean Platelet Volume 10.4 fl (7.4-10.4); Monocytes Absolute Auto 1.3 K/mm3 (0.1-0.6); Neutrophils Absolute Auto 7.9 K/mm3 (1.3-6.7); Neutrophils Percent Auto 72.4 % (45.5-73.1); Platelet Count Result 151 k/mm3 (150-375); Red Blood Count 3.05 M/mm3 (4.6-6.20); Red Cell Distribution Width 15.9 % (11.5-14.5); White Blood Count 10.9 K/mm3 (4.5-10.0)
[2023-12-02 09:54] VITALS: BP 107/56; PULSE 83; TEMP 36.3; O2SAT 100
[2023-12-02 10:21] LABS: Alanine Aminotransferase 113 U/L (6-50); Alkaline Phosphatase 187 U/L (38-126); Anion Gap 9 mmol/L (4-12); Aspartate Amino Transferase 152 U/L (17-59); Bilirubin,Total 0.5 mg/dL (0.2-1.3); Blood Urea Nitrogen 19 mg/dL (9-20); Calcium 8.9 mg/dL (8.4-10.2); Carbon Dioxide 22 mmol/L (22-30); Chloride 107 mmol/L (98-107); Estimated Glomerular Filt Rate > 60; Glucose 107 mg/dL (65-110); Magnesium 1.4 mg/dL (1.6-2.3); Sodium 138 mmol/L (137-145)
[2023-12-02] MEDS: PEMBROLIZUMAB 200 MG in SODIUM CHLORIDE 0.9% IV 100 ML 216 MG IVPB (10:45)
--- NOTE | 2023-12-02 10:54 | PHAR ---
MAGNESIUM [address] GRAMS CALL[address] IN BY DR VILLAFANA DUE TO MG OF 1.4.
[2023-12-02] MEDS: POTASSIUM CHLORIDE IVPB (11:24)
[2023-12-02] MEDS: MAGNESIUM SULFATE IVPB (11:24)
[2023-12-02] MEDS: [UNRECOGNIZED DRUG - OTHER] IVPB (11:24)
[2023-12-02] MEDS: FOSAPREPITANT DIMEGLUMINE 150 MG in SODIUM CHLORIDE 0.9% IV 150 ML 300 MG IVPB (12:37)
[2023-12-02] MEDS: dexAMETHasone SOD 4 MG/ML INJ 12 MG in SODIUM CHLORIDE 0.9% IV 100 ML 206 MG IVPB (12:37)
[2023-12-02] MEDS: PALONOSETRON HCL 0.25 MG/5 ML VIAL IV PUSH (12:37)
[2023-12-02] MEDS: SODIUM CHLORIDE 0.9% IVPB ×2 (13:34→14:19)
[2023-12-02] MEDS: GEMCITABINE HCL IVPB (13:34)
[2023-12-02] MEDS: SODIUM CHLORIDE 0.9% IV 500 ML IVPB (14:18)
[2023-12-02] MEDS: CISPLATIN IVPB (14:19)
[2023-12-02] MEDS: WATER IVPB (15:29)
[2023-12-02] MEDS: MAGNESIUM SULF IVPB (15:29)
[2023-12-02 15:54] VITALS: BP 117/63
[2023-12-02] MEDS: HEPARIN SODIUM LOCK FLUSH 500 UNITS/5 ML SYRINGE IV PUSH (15:58)
[2023-12-09 09:37] LABS: Hematocrit 30.8 % (42.0-52.0); Hemoglobin 10.2 g/dL (14.0-18.0); Mean Corpuscular HGB Conc 33.1 g/dl (32-36); Mean Corpuscular Hemoglobin 34.5 pg (26-34); Mean Corpuscular Volume 104.1 fl (80-100); Mean Platelet Volume 11.1 fl (7.4-10.4); Platelet Count Result 96 k/mm3 (150-375); Red Blood Count 2.96 M/mm3 (4.6-6.20); Red Cell Distribution Width 14.4 % (11.5-14.5); White Blood Count 8.4 K/mm3 (4.5-10.0)
[2023-12-09 09:40] LABS: Blood Urea Nitrogen 34 mg/dL (8-26); Carbon Dioxide 21 mmol/L (22-30); Chloride 105 mmol/L (98-109); Estimated Glomerular Filt Rate > 60; Glucose 99 mg/dL (70-105); Ionized Calcium (POC) 1.24 mmol/L (1.11-1.31); Potassium 5.1 mmol/L (3.5-4.9); Sodium 136 mmol/L (138-146)
[2023-12-09 09:44] LABS: Band Neutrophils Percent 4 % (0-6); Hypochromasia 1+; Lymphocytes Absolute Manual 1.76 K/mm3 (1.1-4.5); Metamyelocytes Percent 1 %; Monocytes Absolute Manual 0.75 K/mm3 (0.1-0.90); Monocytes Percent Manual 9 % (3-9); Neutrophils Absolute Manual 5.79 K/mm3 (1.3-6.7); Neutrophils Percent Manual 65 % (46-73); Platelet Estimate Decreased (Adequate); Schistocytes None Seen; Total Cells Counted 100
[2023-12-09 09:45] VITALS: BP 116/68; PULSE 68; TEMP 36.3; O2SAT 100
[2023-12-09] MEDS: POTASSIUM CHLORIDE IVPB (10:07)
[2023-12-09] MEDS: [UNRECOGNIZED DRUG - OTHER] IVPB (10:07)
[2023-12-09] MEDS: MAGNESIUM SULFATE IVPB (10:07)
[2023-12-09 11:04] LABS: Alanine Aminotransferase 131 U/L (6-50); Albumin Level 3.4 g/dL (3.5-5.1); Alkaline Phosphatase 165 U/L (38-126); Anion Gap 8 mmol/L (4-12); Aspartate Amino Transferase 114 U/L (17-59); Bilirubin,Total 1.1 mg/dL (0.2-1.3); Blood Urea Nitrogen 39 mg/dL (9-20); Calcium 8.9 mg/dL (8.4-10.2); Carbon Dioxide 21 mmol/L (22-30); Chloride 101 mmol/L (98-107); Estimated Glomerular Filt Rate > 60; Glucose 95 mg/dL (65-110); Magnesium 1.5 mg/dL (1.6-2.3); Potassium 5.1 mmol/L (3.4-5.0); Sodium 130 mmol/L (137-145)
[2023-12-09] MEDS: PALONOSETRON HCL 0.25 MG/5 ML VIAL IV PUSH (11:32)
[2023-12-09] MEDS: FOSAPREPITANT DIMEGLUMINE 150 MG in SODIUM CHLORIDE 0.9% IV 150 ML 300 MG IVPB (11:34)
[2023-12-09] MEDS: dexAMETHasone SOD 4 MG/ML INJ 12 MG in SODIUM CHLORIDE 0.9% IV 100 ML 206 MG IVPB (11:34)
[2023-12-09] MEDS: GEMCITABINE HCL IVPB (12:13)
[2023-12-09] MEDS: SODIUM CHLORIDE 0.9% IVPB ×2 (12:13→12:55)
[2023-12-09] MEDS: SODIUM CHLORIDE 0.9% IV 500 ML IVPB (12:54)
[2023-12-09] MEDS: CISPLATIN IVPB (12:55)
[2023-12-09 14:06] VITALS: BP 129/65
[2023-12-09] MEDS: HEPARIN SODIUM LOCK FLUSH 500 UNITS/5 ML SYRINGE IV PUSH (14:06)
[2024-02-03] MEDS: HEPARIN SODIUM LOCK FLUSH 500 UNITS/5 ML SYRINGE IV PUSH (08:26)
[2024-03-02 14:15] LABS: Hematocrit 35.5 % (42.0-52.0); Hemoglobin 11.6 g/dL (14.0-18.0); Mean Corpuscular HGB Conc 32.7 g/dl (32-36); Mean Corpuscular Hemoglobin 34.5 pg (26-34); Mean Corpuscular Volume 105.7 fl (80-100); Mean Platelet Volume 10.3 fl (7.4-10.4); Platelet Count Result 181 k/mm3 (150-375); Red Blood Count 3.36 M/mm3 (4.6-6.20); White Blood Count 19.5 K/mm3 (4.5-10.0)
[2024-03-02 14:34] LABS: Band Neutrophils Percent 4 % (0-6); Lymphocytes Absolute Manual 2.92 K/mm3 (1.1-4.5); Monocytes Absolute Manual 0.78 K/mm3 (0.1-0.90); Monocytes Percent Manual 4 % (3-9); Neutrophils Absolute Manual 15.79 K/mm3 (1.3-6.7); Neutrophils Percent Manual 77 % (46-73); Total Cells Counted 100
[2024-03-02 14:35] LABS: Platelet Estimate Adequate (Adequate); Schistocytes None Seen
[2024-03-02 14:38] LABS: Ovalocytes 1+; Poikilocytosis 1+
[2024-03-02 16:37] LABS: Alanine Aminotransferase 31 U/L (6-50); Albumin Level 3.2 g/dL (3.5-5.1); Alkaline Phosphatase 187 U/L (38-126); Anion Gap 4 mmol/L (4-12); Aspartate Amino Transferase 73 U/L (17-59); Bilirubin,Total 0.8 mg/dL (0.2-1.3); Blood Urea Nitrogen 27 mg/dL (9-20); Calcium 8.4 mg/dL (8.4-10.2); Carbon Dioxide 35 mmol/L (22-30); Chloride 97 mmol/L (98-107); Estimated Glomerular Filt Rate > 60; Glucose 125 mg/dL (65-110); Magnesium 1.6 mg/dL (1.6-2.3); Potassium 3.8 mmol/L (3.4-5.0); Sodium 136 mmol/L (137-145)
[2024-03-06 09:36] LABS: Hematocrit 34.3 % (42.0-52.0); Hemoglobin 11.4 g/dL (14.0-18.0); Mean Corpuscular HGB Conc 33.2 g/dl (32-36); Mean Corpuscular Hemoglobin 34.8 pg (26-34); Mean Corpuscular Volume 104.6 fl (80-100); Mean Platelet Volume 10.1 fl (7.4-10.4); Platelet Count Result 193 k/mm3 (150-375); Red Blood Count 3.28 M/mm3 (4.6-6.20); Red Cell Distribution Width 12.8 % (11.5-14.5); White Blood Count 20.5 K/mm3 (4.5-10.0)
[2024-03-06 09:42] LABS: Blood Urea Nitrogen 12 mg/dL (8-26); Carbon Dioxide 26 mmol/L (22-30); Chloride 99 mmol/L (98-109); Estimated Glomerular Filt Rate > 60; Glucose 128 mg/dL (70-105); Ionized Calcium (POC) 1.22 mmol/L (1.11-1.31); Potassium 3.6 mmol/L (3.5-4.9); Sodium 139 mmol/L (138-146)
[2024-03-06 09:52] VITALS: BP 108/72; PULSE 88; RESP 20; TEMP 36.8; O2SAT 98
[2024-03-06 09:52] LABS: Atypical Lymphocytes Present; Band Neutrophils Percent 3 % (0-6); Lymphocytes Absolute Manual 2.66 K/mm3 (1.1-4.5); Monocytes Absolute Manual 2.05 K/mm3 (0.1-0.90); Monocytes Percent Manual 10 % (3-9); Neutrophils Absolute Manual 15.78 K/mm3 (1.3-6.7); Neutrophils Percent Manual 74 % (46-73); Platelet Estimate Adequate (Adequate); Schistocytes None Seen; Total Cells Counted 100
[2024-03-06 10:25] LABS: Alanine Aminotransferase 24 U/L (6-50); Albumin Level 2.9 g/dL (3.5-5.1); Alkaline Phosphatase 159 U/L (38-126); Anion Gap 3 mmol/L (4-12); Aspartate Amino Transferase 35 U/L (17-59); Bilirubin,Total 0.6 mg/dL (0.2-1.3); Blood Urea Nitrogen 14 mg/dL (9-20); Calcium 8.8 mg/dL (8.4-10.2); Carbon Dioxide 29 mmol/L (22-30); Chloride 104 mmol/L (98-107); Estimated Glomerular Filt Rate > 60; Glucose 125 mg/dL (65-110); Potassium 3.7 mmol/L (3.4-5.0); Sodium 136 mmol/L (137-145)
[2024-03-06] MEDS: PEMBROLIZUMAB 200 MG in SODIUM CHLORIDE 0.9% IV 100 ML 216 MG IVPB (10:37)
[2024-03-06 10:54] LABS: Thyroid Stimulating Hormone 0.605 uIU/mL (0.465-4.680)
[2024-03-06] MEDS: ONDANSETRON INJ 4 MG/2 ML VIAL 8 MG IV PUSH (11:25)
[2024-03-06] MEDS: dexAMETHasone SOD 4 MG/ML INJ 12 MG in SODIUM CHLORIDE 0.9% IV 100 ML 206 MG IVPB (11:27)
[2024-03-06] MEDS: SODIUM CHLORIDE 0.9% IVPB (12:11)
[2024-03-06] MEDS: GEMCITABINE HCL IVPB (12:11)
[2024-03-06 12:43] VITALS: BP 110/72
[2024-03-06] MEDS: HEPARIN SODIUM LOCK FLUSH 500 UNITS/5 ML SYRINGE IV PUSH (12:46)
[2024-03-27 11:27] LABS: Hematocrit 33.8 % (42.0-52.0); Hemoglobin 11.3 g/dL (14.0-18.0); Mean Corpuscular HGB Conc 33.4 g/dl (32-36); Mean Corpuscular Hemoglobin 34.7 pg (26-34); Mean Corpuscular Volume 103.7 fl (80-100); Mean Platelet Volume 10.5 fl (7.4-10.4); Platelet Count Result 270 k/mm3 (150-375); Red Blood Count 3.26 M/mm3 (4.6-6.20); White Blood Count 25.4 K/mm3 (4.5-10.0)
[2024-03-27 11:31] LABS: Blood Urea Nitrogen 19 mg/dL (8-26); Carbon Dioxide 27 mmol/L (22-30); Chloride 101 mmol/L (98-109); Estimated Glomerular Filt Rate > 60; Glucose 128 mg/dL (70-105); Ionized Calcium (POC) 1.28 mmol/L (1.11-1.31); Potassium 4.6 mmol/L (3.5-4.9); Sodium 139 mmol/L (138-146)
[2024-03-27 11:33] LABS: Band Neutrophils Percent 6 % (0-6); Eosinophils Percent Manual 2 % (0-4); Lymphocytes Absolute Manual 2.28 K/mm3 (1.1-4.5); Metamyelocytes Percent 1 %; Monocytes Absolute Manual 1.77 K/mm3 (0.1-0.90); Monocytes Percent Manual 7 % (3-9); Neutrophils Absolute Manual 20.57 K/mm3 (1.3-6.7); Neutrophils Percent Manual 75 % (46-73); Platelet Estimate Adequate (Adequate); Schistocytes None Seen; Total Cells Counted 100
[2024-03-27 12:19] VITALS: BP 114/68; PULSE 72; TEMP 36.4; O2SAT 100
[2024-03-27] MEDS: ONDANSETRON INJ 4 MG/2 ML VIAL 8 MG IV PUSH (12:50)
[2024-03-27] MEDS: dexAMETHasone SOD 4 MG/ML INJ 12 MG in SODIUM CHLORIDE 0.9% IV 100 ML 206 MG IVPB (12:52)
[2024-03-27] MEDS: GEMCITABINE HCL IVPB (13:25)
[2024-03-27] MEDS: SODIUM CHLORIDE 0.9% IVPB (13:25)
[2024-03-27 14:04] VITALS: BP 100/59
[2024-03-27] MEDS: HEPARIN SODIUM LOCK FLUSH 500 UNITS/5 ML SYRINGE IV PUSH (14:08)
[2024-03-27 16:36] LABS: Alanine Aminotransferase 19 U/L (6-50); Albumin Level 2.7 g/dL (3.5-5.1); Alkaline Phosphatase 162 U/L (38-126); Anion Gap 4 mmol/L (4-12); Aspartate Amino Transferase 26 U/L (17-59); Bilirubin,Total 0.6 mg/dL (0.2-1.3); Blood Urea Nitrogen 22 mg/dL (9-20); Calcium 9.2 mg/dL (8.4-10.2); Carbon Dioxide 27 mmol/L (22-30); Chloride 105 mmol/L (98-107); Estimated Glomerular Filt Rate > 60; Glucose 114 mg/dL (65-110); Potassium 4.7 mmol/L (3.4-5.0); Sodium 136 mmol/L (137-145)
[2024-04-10 12:53] LABS: Basophils Absolute Auto 0.1 K/mm3 (0.0-0.1); Basophils Percent Auto 0.3 % (0.2-1.2); Eosinophils Absolute Auto 0.1 K/mm3 (0-0.3); Eosinophils Percent Auto 0.4 % (0-4.4); Hematocrit 32.8 % (42.0-52.0); Hemoglobin 10.9 g/dL (14.0-18.0); Immature Granulocyte Absolute 0.08 K/mm3 (0.00-0.031); Immature Granulocyte Percent A 0.4 % (0-0.5); Lymphocytes Absolute Auto 1.38 K/mm3 (0.9-3.2); Lymphocytes Percent Auto 7.6 % (18.3-44.2); Mean Corpuscular HGB Conc 33.2 g/dl (32-36); Mean Corpuscular Hemoglobin 33.5 pg (26-34); Mean Corpuscular Volume 100.9 fl (80-100); Mean Platelet Volume 9.9 fl (7.4-10.4); Monocytes Absolute Auto 1.5 K/mm3 (0.1-0.6); Neutrophils Absolute Auto 15.2 K/mm3 (1.3-6.7); Neutrophils Percent Auto 83.3 % (45.5-73.1); Platelet Count Result 242 k/mm3 (150-375); Red Blood Count 3.25 M/mm3 (4.6-6.20); Red Cell Distribution Width 13.3 % (11.5-14.5); White Blood Count 18.2 K/mm3 (4.5-10.0)
[2024-04-10 12:58] LABS: Blood Urea Nitrogen 11 mg/dL (8-26); Carbon Dioxide 23 mmol/L (22-30); Chloride 101 mmol/L (98-109); Estimated Glomerular Filt Rate > 60; Glucose 121 mg/dL (70-105); Ionized Calcium (POC) 1.19 mmol/L (1.11-1.31); Potassium 3.7 mmol/L (3.5-4.9); Sodium 137 mmol/L (138-146)
[2024-04-10] MEDS: HEPARIN SODIUM LOCK FLUSH 500 UNITS/5 ML SYRINGE (13:20)
[2024-04-10 17:05] LABS: Alanine Aminotransferase 26 U/L (6-50); Albumin Level 3.2 g/dL (3.5-5.1); Alkaline Phosphatase 209 U/L (38-126); Anion Gap 11 mmol/L (4-12); Aspartate Amino Transferase 26 U/L (17-59); Bilirubin,Total 0.8 mg/dL (0.2-1.3); Blood Urea Nitrogen 13 mg/dL (9-20); Calcium 8.8 mg/dL (8.4-10.2); Carbon Dioxide 23 mmol/L (22-30); Chloride 102 mmol/L (98-107); Estimated Glomerular Filt Rate > 60; Glucose 115 mg/dL (65-110); Potassium 3.9 mmol/L (3.4-5.0); Sodium 136 mmol/L (137-145)
[2024-04-10 17:33] LABS: Hepatitis B Surface Antigen Negative (Negative)
[2024-04-14 15:13] LABS: NIL 0.01 IU/mL; Quantiferon TB Plus, 1T NEGATIVE (NEGATIVE)
[2024-04-27 09:40] LABS: Basophils Absolute Auto 0.1 K/mm3 (0.0-0.1); Basophils Percent Auto 0.2 % (0.2-1.2); Eosinophils Absolute Auto 0.1 K/mm3 (0-0.3); Eosinophils Percent Auto 0.3 % (0-4.4); Hematocrit 33.2 % (42.0-52.0); Hemoglobin 11.3 g/dL (14.0-18.0); Immature Granulocyte Absolute 0.32 K/mm3 (0.00-0.031); Immature Granulocyte Percent A 1.1 % (0-0.5); Lymphocytes Absolute Auto 2.06 K/mm3 (0.9-3.2); Lymphocytes Percent Auto 6.8 % (18.3-44.2); Monocytes Absolute Auto 2.1 K/mm3 (0.1-0.6); Monocytes Percent Auto 6.8 % (2.6-8.5); Neutrophils Absolute Auto 25.9 K/mm3 (1.3-6.7); Neutrophils Percent Auto 84.8 % (45.5-73.1); Platelet Count Result 236 k/mm3 (150-375); Red Blood Count 3.32 M/mm3 (4.6-6.20); Red Cell Distribution Width 13.7 % (11.5-14.5); White Blood Count 30.4 K/mm3 (4.5-10.0)
[2024-04-27 09:43] LABS: Blood Urea Nitrogen 15 mg/dL (8-26); Carbon Dioxide 25 mmol/L (22-30); Chloride 101 mmol/L (98-109); Estimated Glomerular Filt Rate > 60; Glucose 178 mg/dL (70-105); Ionized Calcium (POC) 1.29 mmol/L (1.11-1.31); Potassium 3.6 mmol/L (3.5-4.9); Sodium 137 mmol/L (138-146)
[2024-04-27 10:02] VITALS: BP 125/57; PULSE 104; TEMP 36.1; O2SAT 100
[2024-04-27] MEDS: PALONOSETRON HCL 0.25 MG/5 ML VIAL IV PUSH (10:21)
[2024-04-27] MEDS: FAMOTIDINE 20 MG/2 ML VIAL IV PUSH (10:22)
[2024-04-27] MEDS: diphenhydrAMINE HCl INJ 50 MG/ML VIAL 25 MG IV PUSH (10:24)
[2024-04-27] MEDS: dexAMETHasone SOD 4 MG/ML INJ 12 MG in SODIUM CHLORIDE 0.9% IV 100 ML 206 MG IVPB (10:25)
[2024-04-27 10:31] LABS: Alanine Aminotransferase 26 U/L (6-50); Albumin Level 3.2 g/dL (3.5-5.1); Alkaline Phosphatase 158 U/L (38-126); Anion Gap 9 mmol/L (4-12); Aspartate Amino Transferase 32 U/L (17-59); Bilirubin,Total 0.7 mg/dL (0.2-1.3); Blood Urea Nitrogen 17 mg/dL (9-20); Calcium 9.3 mg/dL (8.4-10.2); Carbon Dioxide 24 mmol/L (22-30); Chloride 102 mmol/L (98-107); Estimated Glomerular Filt Rate > 60; Glucose 166 mg/dL (65-110); Potassium 3.7 mmol/L (3.4-5.0); Sodium 135 mmol/L (137-145)
[2024-04-27] MEDS: DEXTROSE 5% IVPB ×2 (11:05)
[2024-04-27] MEDS: WATER IVPB ×2 (11:05)
[2024-04-27] MEDS: LEUCOVORIN CALCIUM IVPB (11:05)
[2024-04-27] MEDS: OXALIPLATIN IVPB (11:05)
[2024-04-27] MEDS: FLUOROURACIL 1,000 MG/20 ML VIAL 660 MG IV PUSH (13:27)
[2024-04-27] MEDS: [UNRECOGNIZED DRUG - OTHER] IVPB (13:34)
[2024-04-27] MEDS: FLUOROURACIL IVPB (13:34)
[2024-04-27 13:41] VITALS: BP 102/66
[2024-04-29 11:07] VITALS: BP 117/65; PULSE 118; TEMP 38.7; O2SAT 99
[2024-04-29] MEDS: HEPARIN SODIUM LOCK FLUSH 500 UNITS/5 ML SYRINGE IV PUSH (11:55)
--- NOTE | 2024-04-29 11:57 | PC.NURSE ---
Patient being taken to the emergency room by James russo.
[2024-05-08 08:54] LABS: Basophils Percent Auto 0.3 % (0.2-1.2); Eosinophils Absolute Auto 0.2 K/mm3 (0-0.3); Eosinophils Percent Auto 1.4 % (0-4.4); Hematocrit 32.5 % (42.0-52.0); Hemoglobin 10.4 g/dL (14.0-18.0); Immature Granulocyte Absolute 0.04 K/mm3 (0.00-0.031); Immature Granulocyte Percent A 0.4 % (0-0.5); Lymphocytes Absolute Auto 1.01 K/mm3 (0.9-3.2); Lymphocytes Percent Auto 9.2 % (18.3-44.2); Mean Corpuscular Hemoglobin 32.6 pg (26-34); Mean Corpuscular Volume 101.9 fl (80-100); Mean Platelet Volume 11.1 fl (7.4-10.4); Monocytes Percent Auto 9.5 % (2.6-8.5); Neutrophils Absolute Auto 8.7 K/mm3 (1.3-6.7); Neutrophils Percent Auto 79.2 % (45.5-73.1); Platelet Count Result 102 k/mm3 (150-375); Red Blood Count 3.19 M/mm3 (4.6-6.20); Red Cell Distribution Width 13.3 % (11.5-14.5)
[2024-05-08 08:58] LABS: Blood Urea Nitrogen 9 mg/dL (8-26); Carbon Dioxide 23 mmol/L (22-30); Chloride 102 mmol/L (98-109); Estimated Glomerular Filt Rate > 60; Glucose 139 mg/dL (70-105); Ionized Calcium (POC) 1.18 mmol/L (1.11-1.31); Potassium 3.7 mmol/L (3.5-4.9); Sodium 137 mmol/L (138-146)
[2024-05-08 10:20] LABS: Alanine Aminotransferase 20 U/L (6-50); Alkaline Phosphatase 156 U/L (38-126); Anion Gap 9 mmol/L (4-12); Aspartate Amino Transferase 28 U/L (17-59); Bilirubin,Total 0.8 mg/dL (0.2-1.3); Blood Urea Nitrogen 11 mg/dL (9-20); Calcium 9.1 mg/dL (8.4-10.2); Carbon Dioxide 24 mmol/L (22-30); Chloride 103 mmol/L (98-107); Estimated Glomerular Filt Rate > 60; Glucose 134 mg/dL (65-110); Magnesium 1.3 mg/dL (1.6-2.3); Potassium 3.9 mmol/L (3.4-5.0); Sodium 136 mmol/L (137-145)
[2024-05-12 09:15] LABS: Basophils Percent Auto 0.3 % (0.2-1.2); Eosinophils Absolute Auto 0.1 K/mm3 (0-0.3); Eosinophils Percent Auto 1.6 % (0-4.4); Hematocrit 28.2 % (42.0-52.0); Hemoglobin 9.5 g/dL (14.0-18.0); Immature Granulocyte Absolute 0.03 K/mm3 (0.00-0.031); Immature Granulocyte Percent A 0.5 % (0-0.5); Lymphocytes Percent Auto 19.4 % (18.3-44.2); Mean Corpuscular HGB Conc 33.7 g/dl (32-36); Mean Corpuscular Hemoglobin 32.9 pg (26-34); Mean Corpuscular Volume 97.6 fl (80-100); Mean Platelet Volume 10.2 fl (7.4-10.4); Monocytes Absolute Auto 1.5 K/mm3 (0.1-0.6); Monocytes Percent Auto 23.8 % (2.6-8.5); Neutrophils Absolute Auto 3.4 K/mm3 (1.3-6.7); Neutrophils Percent Auto 54.4 % (45.5-73.1); Platelet Count Result 149 k/mm3 (150-375); Red Blood Count 2.89 M/mm3 (4.6-6.20); Red Cell Distribution Width 13.6 % (11.5-14.5); White Blood Count 6.2 K/mm3 (4.5-10.0)
[2024-05-12 09:18] LABS: Blood Urea Nitrogen 12 mg/dL (8-26); Carbon Dioxide 24 mmol/L (22-30); Chloride 103 mmol/L (98-109); Estimated Glomerular Filt Rate > 60; Glucose 143 mg/dL (70-105); Ionized Calcium (POC) 1.24 mmol/L (1.11-1.31); Potassium 3.2 mmol/L (3.5-4.9); Sodium 140 mmol/L (138-146)
[2024-05-12 09:24] VITALS: BP 100/64; PULSE 82; RESP 16; TEMP 36.9; O2SAT 100
[2024-05-12] MEDS: diphenhydrAMINE HCl INJ 50 MG/ML VIAL 25 MG IV PUSH (10:06)
[2024-05-12] MEDS: FAMOTIDINE 20 MG/2 ML VIAL IV PUSH (10:07)
[2024-05-12] MEDS: PALONOSETRON HCL 0.25 MG/5 ML VIAL IV PUSH (10:08)
[2024-05-12] MEDS: dexAMETHasone SOD 4 MG/ML INJ 12 MG in SODIUM CHLORIDE 0.9% IV 100 ML 206 MG IVPB (10:16)
[2024-05-12] MEDS: LEUCOVORIN CALCIUM IVPB (10:55)
[2024-05-12] MEDS: DEXTROSE 5% IVPB ×2 (10:55→10:56)
[2024-05-12] MEDS: WATER IVPB ×2 (10:55→10:56)
[2024-05-12] MEDS: OXALIPLATIN IVPB (10:56)
[2024-05-12 11:09] LABS: Alanine Aminotransferase 18 U/L (6-50); Albumin Level 2.8 g/dL (3.5-5.1); Alkaline Phosphatase 167 U/L (38-126); Anion Gap 7 mmol/L (4-12); Aspartate Amino Transferase 34 U/L (17-59); Bilirubin,Total 0.5 mg/dL (0.2-1.3); Blood Urea Nitrogen 13 mg/dL (9-20); Carbon Dioxide 26 mmol/L (22-30); Chloride 104 mmol/L (98-107); Estimated Glomerular Filt Rate > 60; Glucose 135 mg/dL (65-110); Potassium 3.2 mmol/L (3.4-5.0); Sodium 137 mmol/L (137-145)
[2024-05-12 12:34] VITALS: BP 120/73; PULSE 91; RESP 18; TEMP 37; O2SAT 100
[2024-05-12 13:09] VITALS: BP 123/73
[2024-05-12] MEDS: [UNRECOGNIZED DRUG - OTHER] IVPB (13:18)
[2024-05-12] MEDS: FLUOROURACIL 1,000 MG/20 ML VIAL 660 MG IV PUSH (13:18)
[2024-05-12] MEDS: FLUOROURACIL IVPB (13:18)
--- NOTE | 2024-05-14 11:34 | PC.NURSE ---
Patient here for pump disconnect
[2024-05-14 11:35] VITALS: BP 104/54; PULSE 119; TEMP 36.8; O2SAT 98
[2024-05-14] MEDS: HEPARIN SODIUM LOCK FLUSH 500 UNITS/5 ML SYRINGE IV PUSH (12:30)
[2024-05-26 10:13] LABS: Basophils Percent Auto 0.3 % (0.2-1.2); Eosinophils Percent Auto 0.8 % (0-4.4); Hematocrit 27.6 % (42.0-52.0); Hemoglobin 9.4 g/dL (14.0-18.0); Immature Granulocyte Absolute 0.04 K/mm3 (0.00-0.031); Immature Granulocyte Percent A 1.1 % (0-0.5); Mean Corpuscular HGB Conc 34.1 g/dl (32-36); Mean Corpuscular Hemoglobin 32.6 pg (26-34); Mean Corpuscular Volume 95.8 fl (80-100); Mean Platelet Volume 10.9 fl (7.4-10.4); Monocytes Absolute Auto 1.9 K/mm3 (0.1-0.6); Monocytes Percent Auto 52.7 % (2.6-8.5); Neutrophils Absolute Auto 0.5 K/mm3 (1.3-6.7); Neutrophils Percent Auto 14.1 % (45.5-73.1); Platelet Count Result 108 k/mm3 (150-375); Red Blood Count 2.88 M/mm3 (4.6-6.20); Red Cell Distribution Width 14.6 % (11.5-14.5); White Blood Count 3.6 K/mm3 (4.5-10.0)
[2024-05-26 10:18] LABS: Platelet Estimate Decreased (Adequate); Schistocytes None Seen
[2024-05-26 10:19] VITALS: BP 109/74; PULSE 102; TEMP 36.9; O2SAT 99
[2024-05-26 10:20] LABS: Blood Urea Nitrogen 11 mg/dL (8-26); Carbon Dioxide 23 mmol/L (22-30); Chloride 102 mmol/L (98-109); Estimated Glomerular Filt Rate > 60; Glucose 105 mg/dL (70-105); Ionized Calcium (POC) 1.24 mmol/L (1.11-1.31); Potassium 3.3 mmol/L (3.5-4.9); Sodium 138 mmol/L (138-146)
[2024-05-26 10:21] LABS: Ovalocytes 1+
[2024-05-26] MEDS: HEPARIN SODIUM LOCK FLUSH 500 UNITS/5 ML SYRINGE (10:53)
[2024-05-26 12:18] LABS: Alanine Aminotransferase 15 U/L (6-50); Albumin Level 2.9 g/dL (3.5-5.1); Alkaline Phosphatase 131 U/L (38-126); Anion Gap 9 mmol/L (4-12); Aspartate Amino Transferase 22 U/L (17-59); Blood Urea Nitrogen 13 mg/dL (9-20); Calcium 9.2 mg/dL (8.4-10.2); Carbon Dioxide 24 mmol/L (22-30); Chloride 103 mmol/L (98-107); Estimated Glomerular Filt Rate > 60; Glucose 101 mg/dL (65-110); Potassium 3.4 mmol/L (3.4-5.0); Sodium 136 mmol/L (137-145)
[2024-06-09 08:39] LABS: Basophils Absolute Auto 0.1 K/mm3 (0.0-0.1); Basophils Percent Auto 0.3 % (0.2-1.2); Eosinophils Percent Auto 0.1 % (0-4.4); Hematocrit 30.1 % (42.0-52.0); Immature Granulocyte Absolute 0.26 K/mm3 (0.00-0.031); Immature Granulocyte Percent A 0.8 % (0-0.5); Lymphocytes Absolute Auto 1.37 K/mm3 (0.9-3.2); Lymphocytes Percent Auto 4.2 % (18.3-44.2); Mean Corpuscular HGB Conc 33.2 g/dl (32-36); Mean Corpuscular Hemoglobin 32.1 pg (26-34); Mean Corpuscular Volume 96.5 fl (80-100); Mean Platelet Volume 11.5 fl (7.4-10.4); Monocytes Percent Auto 9.1 % (2.6-8.5); Neutrophils Absolute Auto 27.8 K/mm3 (1.3-6.7); Neutrophils Percent Auto 85.5 % (45.5-73.1); Platelet Count Result 122 k/mm3 (150-375); Red Blood Count 3.12 M/mm3 (4.6-6.20); Red Cell Distribution Width 15.5 % (11.5-14.5); White Blood Count 32.5 K/mm3 (4.5-10.0)
[2024-06-09 08:45] LABS: Blood Urea Nitrogen 6 mg/dL (8-26); Carbon Dioxide 25 mmol/L (22-30); Chloride 100 mmol/L (98-109); Estimated Glomerular Filt Rate > 60; Glucose 103 mg/dL (70-105); Potassium 3.6 mmol/L (3.5-4.9); Sodium 137 mmol/L (138-146)
== END 2024-07-21 08:51 ==
LOC: AMCINF 08:19
PROVIDERS: Visit Provider Internal Medicine Hematology & Oncology
DX: C22.1 Intrahepatic bile duct carcinoma (principal); I10 Essential (primary) hypertension; E61.2 Magnesium deficiency; Z90.49 Acquired absence of other specified parts of digestive tract
CPT/HCPCS: 36415; 36591; 80047; 80053; 82607; 82728; 82746; 83540; 83550; 83735; 84443; 85025; 86480; 86850; 86900; 86901; 86923; 87340; 96365; 96366; 96367; 96368; 96375; 96411; 96413; 96415; 96416; 96417; 96523; 99212; A9270; G0463; J0640; J1100; J1200; J1453; J2405; J2469; J3475; J3480; J7030; J7040; J7050; J7060; J9060; J9190; J9201; J9263; J9271